=== PATIENT | female | born 2000 | race Hispanic/Latino ===

== ENCOUNTER 2018-06-21 00:43 | Emergency (ER) | payer BC, SELFPAY ==
[2018-06-21 01:48] LABS: Urine RBC <5 /HPF (NONE SEEN)
[2018-06-21 01:49] LABS: Urine Bacteria 20-50 /HPF (<20); Urine Culture Reflex Order REFLEXED; Urine Mucus HEAVY /HPF (NONE SEEN)
--- NOTE | 2018-06-21 03:50 | ER ---
Nurse's Notes [facility] Name: Klaudia Combs Age: 17 yrs Sex: Female : 2000 Arrival Date: 06/21/2018 Time: 00:46 Bed 19 Private MD: Diagnosis: urinary tract infection;Constipation, unspecified Presentation: 06/21 00:53 Presenting complaint: Patient states: Sudden onset of LLQ abdominal pain, tender on lp1 palpation; Denies any burning with urination, fever, N/V. Transition of care: patient was not received from another setting of care. Onset of symptoms was June 21, 2018 at 00:30. Risk Assessment: Do you want to hurt yourself or someone else? Patient reports no desire to harm self or others. Initial Sepsis Screen: Does the patient meet any 2 criteria? No. Patient's initial sepsis screen is negative. Does the patient have a suspected source of infection? No. Patient's initial sepsis screen is negative. Care prior to arrival: None. 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 - Social history:: Smoking status: Patient/guardian denies using tobacco. - Ebola Screening: : No symptoms or risks identified at this time. Screenin:57 Abuse screen: Denies threats or abuse. Denies injuries from another. Nutritional lp1 screening: No deficits noted. Tuberculosis screening: No symptoms or risk factors identified. Fall Risk None identified. Assessment: 00:56 General: Appears uncomfortable, Behavior is appropriate for age. Pain: Complains of lp1 pain in left lower quadrant and left inguinal area. Neuro: Level of Consciousness is awake, alert, obeys commands, Oriented to person, place, time, situation. Cardiovascular: Patient's skin is warm and dry. Respiratory: Respiratory effort is even, unlabored. GI: Abdomen is flat, Bowel sounds present X 4 quads. Abdomen is tender to palpation in left lower quadrant. : Denies burning with urination. EENT: No signs and/or symptoms were reported regarding the EENT system. Derm: Skin is pink, warm \T\ dry. Musculoskeletal: Circulation, motion, and sensation intact. 01:00 Reassessment: Patient appears in no apparent distress at this time. Patient and/or lp1 family updated on plan of care and expected duration. Pain level reassessed. Patient states pain to LLQ has subsided at this time; waiting for results. Vital Signs: 00:54 BP 120 / 82; Pulse 100; Resp 16; Temp 99.2(O); Pulse Ox 100% on R/A; Weight 54.43 kg; lp1 Height 5 ft. 3 in. (160.02 cm); Pain 7/10; 01:00 BP 121 / 78; Pulse 89; Resp 16; Pulse Ox 100% on R/A; lp1 03:30 BP 102 / 67; Pulse 79; Resp 16; Pulse Ox 100% on R/A; lp1 00:54 Body Mass Index 21.26 (54.43 kg, 160.02 cm) lp1 ED Course: 00:46 Patient arrived in ED. es 00:51 Price Sr MD is Attending Physician. tw4 00:53 Argelia Kwon, KENDRICK is Primary Nurse. lp1 00:54 Triage completed. lp1 00:55 Arm band placed on. lp1 00:58 Patient has correct armband on for positive identification. Placed in gown. Pulse ox lp1 on. NIBP on. 01:14 Abdomen 1 View (KUB) XRAY In Process Unspecified. EDMS 03:48 No provider procedures requiring assistance completed. Patient did not have IV access lp1 during this emergency room visit. Administered Medications: 03:47 Drug: Macrobid 100 mg Route: PO; lp1 03:56 Follow up: Response: No adverse reaction; Medication administered at discharge. lp1 03:47 Drug: Tylenol 1000 mg Route: PO; lp1 03:56 Follow up: Response: No adverse reaction; Medication administered at discharge. lp1 Outcome: 03:49 Discharge ordered by . tw4 03:56 Discharged to home ambulatory, with family. lp1 03:56 Condition: good 03:56 Discharge instructions given to patient, Instructed on discharge instructions, follow up and referral plans. medication usage, Demonstrated understanding of instructions, follow-up care, medications, Prescriptions given X 1. 03:57 Patient left the ED. lp1 Signatures: Dispatcher [employer] Duyen Victoria Laura, RN RN lp1 Price Sr MD MD tw4
--- NOTE | 2018-06-21 03:50 | EDPHYS ---
Physician Documentation [facility] Name: Klaudia Combs Age: 17 yrs Sex: Female : 2000 Arrival Date: 06/21/2018 Time: 00:46 Bed 19 Private MD: ED Physician Price Sr HPI: 06/21 06:01 This 17 yrs old Female presents to ER via Ambulatory with complaints of Flank tw4 Pain. 06:01 The patient presents with abdominal pain. Onset: The symptoms/episode began/occurred tw4 just prior to arrival, today. The symptoms do not radiate. Associated signs and symptoms: none. The symptoms are described as dull. Modifying factors: The symptoms are alleviated by nothing, the symptoms are aggravated by alcohol. The patient has not experienced similar symptoms in the past. 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 - Social history:: Smoking status: Patient/guardian denies using tobacco. - Ebola Screening: : No symptoms or risks identified at this time. ROS: 06:01 Constitutional: Negative for fever, chills, and weight loss, Eyes: Negative for injury, tw4 pain, redness, and discharge, Cardiovascular: Negative for chest pain, palpitations, and edema, Respiratory: Negative for shortness of breath, cough, wheezing, and pleuritic chest pain, Back: Negative for injury and pain. 06:01 Abdomen/GI: Positive for abdominal pain, Negative for nausea and vomiting, nausea, vomiting, and diarrhea, nausea, vomiting, diarrhea. Exam: 06:01 Constitutional: This is a well developed, well nourished patient who is awake, alert, tw4 and in no acute distress. Head/Face: Normocephalic, atraumatic. Chest/axilla: Normal chest wall appearance and motion. Nontender with no deformity. No lesions are appreciated. Cardiovascular: Regular rate and rhythm with a normal S1 and S2. No gallops, murmurs, or rubs. Normal PMI, no JVD. No pulse deficits. Respiratory: Lungs have equal breath sounds bilaterally, clear to auscultation and percussion. No rales, rhonchi or wheezes noted. No increased work of breathing, no retractions or nasal flaring. Back: No spinal tenderness. No costovertebral tenderness. Full range of motion. MS/ Extremity: Pulses equal, no cyanosis. Neurovascular intact. Full, normal range of motion. Neuro: Awake and alert, GCS 15, oriented to person, place, time, and situation. Cranial nerves II-XII grossly intact. Motor strength 5/5 in all extremities. Sensory grossly intact. Cerebellar exam normal. Normal gait. Vital Signs: 00:54 BP 120 / 82; Pulse 100; Resp 16; Temp 99.2(O); Pulse Ox 100% on R/A; Weight 54.43 kg; lp1 Height 5 ft. 3 in. (160.02 cm); Pain 7/10; 01:00 BP 121 / 78; Pulse 89; Resp 16; Pulse Ox 100% on R/A; lp1 03:30 BP 102 / 67; Pulse 79; Resp 16; Pulse Ox 100% on R/A; lp1 00:54 Body Mass Index 21.26 (54.43 kg, 160.02 cm) lp1 MDM: 00:51 Patient medically screened. tw4 06:01 Differential diagnosis: acute coronary syndrome, bowel obstruction. Data reviewed: tw4 vital signs, nurses notes. Test interpretation: by ED physician or midlevel provider: plain radiologic studies. Counseling: I had a detailed discussion with the patient and/or guardian regarding: lab results. Medication response: Response to treatment: the patient's symptoms have mildly improved after treatment, and as a result, I will discharge patient. 06/21 00:53 Order name: Urine Microscopic Only; Complete Time: 03:21 [facility] 06/21 01:18 Order name: Urine Dipstick--Ancillary (enter results) [facility] 06/21 00:53 Order name: Abdomen 1 View (KUB) XRAY [facility] 06/21 01:18 Order name: Urine --Ancillary (enter results) [facility] 06/21 01:50 Order name: Urine Culture [facility] 06/21 00:53 Order name: Urine Dipstick-Ancillary (obtain specimen); Complete Time: 01:17 [facility] 06/21 00:53 Order name: Urine Test (obtain specimen); Complete Time: 01:17 tw4 Administered Medications: 03:47 Drug: Macrobid 100 mg Route: PO; lp1 03:56 Follow up: Response: No adverse reaction; Medication administered at discharge. lp1 03:47 Drug: Tylenol 1000 mg Route: PO; lp1 03:56 Follow up: Response: No adverse reaction; Medication administered at discharge. lp1 Disposition: 06/21/18 03:49 Discharged to Home. Impression: urinary tract infection, Constipation, unspecified. - Condition is Stable. - Discharge Instructions: Urinary Tract Infection, Adult, Constipation, Adult, [id number]. - Prescriptions for Macrobid 100 mg Oral Capsule - take 1 capsule by ORAL route every 12 hours for 7 days; 14 capsule. - Medication Reconciliation Form, Thank You Letter, Antibiotic Education, Prescription Opioid Use form. - Follow up: Private Physician; When: Upon discharge from the Emergency Department; Reason: If symptoms return, Recheck today's complaints, Continuance of care. - Problem is new. - Symptoms have improved. Signatures: Dispatcher [employer] EDArgelia León RN RN lp1 Price Sr MD MD tw4 Corrections: (The following items were deleted from the chart) 03:57 03:49 06/21/2018 03:49 Discharged to Home. Impression: urinary tract infection; lp1 Constipation, unspecified. Condition is Stable. Discharge Instructions: Urinary Tract Infection, Adult, Constipation, Adult, [id number]. Prescriptions for Macrobid 100 mg Oral Capsule - take 1 capsule by ORAL route every 12 hours for 7 days; 14 capsule. and Forms are Medication Reconciliation Form, Thank You Letter, Antibiotic Education, Prescription Opioid Use. Follow up: Private Physician; When: Upon discharge from the Emergency Department; Reason: If symptoms return, Recheck today's complaints, Continuance of care. Problem is new. Symptoms have improved. tw4
[2018-06-21] MEDS ORDERED: ACETAMINOPHEN 500 MG TAB ONE (03:51)
[2018-06-21] MEDS ORDERED: NITROFURAN MACRO 100 MG CAP PO ONE (03:51)
[2018-06-21 03:53] LABS: Urine Blood TRACE (NEG); Urine Glucose NEGATIVE (NEG); Urine Protein NEGATIVE (NEG); Urine Specific Gravity >1.030 (1.005-1.030)
[2018-06-21 04:09] VITALS: TEMP 99.2; O2SAT 100
[2018-06-21 04:11] VITALS: BP 102/67
--- NOTE | 2018-06-21 11:37 | RAD REPORT ---
EXAM DESCRIPTION: RAD - Abdomen 1 View (KUB) - 06/21/2018 1:20 am CLINICAL HISTORY: ABD PAIN Pain COMPARISON: Abdomen Pelvis W Contrast dated 02/02/2016 FINDINGS: The bowel gas pattern is non-obstructive. No evidence of free air or pneumatosis. Linear o blong calcification projects over the central pelvis, of unclear etiology or significance. No significant bony findings. Moderate retained stool in the colon. IMPRESSION: Moderate fecal retention.
== END 2018-06-21 03:57 | disposition home or self-care (01) ==
LOC: ER 00:43
DX: N39.0 Urinary tract infection, site not specified (principal); K59.00 Constipation, unspecified
CPT/HCPCS: 74018; 81003; 81015; 81025; 87086; 87088; 99284

== ENCOUNTER 2019-01-13 16:17 | Emergency (ER) | payer OTHER, SELFPAY ==
[2019-01-13 17:13] LABS: Absolute Lymphocytes (CBC) 1.5 K/uL (0.7-4.9); Basophils % 0.3 % (0-1.3); Hematocrit 31.7 % (36.0-45.0); Lymphocytes % 20.7 % (15.3-44.8); MPV 9.4 fL (7.6-11.3); RBC Red Blood Cell Count 3.83 M/uL (3.86-4.86)
[2019-01-13 17:24] LABS: BUN Blood Urea Nitrogen 6 mg/dL (7-18); Bicarbonate 25 mmol/L (21-32); Glucose Level 103 mg/dL (74-106); Potassium 3.2 mmol/L (3.5-5.1); Sodium Level 141 mmol/L (136-145)
--- NOTE | 2019-01-13 17:57 | RAD REPORT ---
EXAM DESCRIPTION: US - Transvaginal Study Probe - 01/13/2019 5:49 pm CLINICAL HISTORY: lower abd pain, 1 week s/p elective Pelvic pain. COMPARISON: No comparisons FINDINGS: The uterus is normal in size, shape and echotexture. The endometrial stripe measures 16 mm and is heterogenous in appearance. The right ovary is normal in size and demonstrates normal blood flow. The left ovary was obscured by bowel gas. No significant pelvic ascites. IMPRESSION: Dilatation of the endometrial stripe is seen with heterogenous nonvascular material prob ably related blood product.
--- NOTE | 2019-01-13 18:17 | RAD REPORT ---
EXAM DESCRIPTION: CTAbdomen Pelvis W Contrast - 01/13/2019 6:07 pm CLINICAL HISTORY: Abdominal pain. ABD PAIN COMPARISON: Abdomen Pelvis W Contrast dated 02/02/2016 TECHNIQUE: Biphasic CT imaging of the abdomen and pelvis was performed with 100 ml non-ionic IV cont rast. All CT scans are performed using dose optimization technique as appropriate and may include automated exposure control or mA/KV adjustment according to patient size. FINDINGS: The lung bases are clear. The liver, spleen, pancreas, adrenal glands and kidneys are within normal limits. No bowel obstruction, free air, free fluid or abscess. There is quite a large amount of stool in the colon. The appendix is normal. No evidence of significant lymphadenopathy. No suspicious bony findings. Fluid is present in the endometrial canal is well as a small amount in t he pelvis. IMPRESSION: Prominent fecal retention in the colon.
--- NOTE | 2019-01-13 18:25 | EDPHYS ---
Physician Documentation [facility] Name: Klaudia Combs Age: 18 yrs Sex: Female : 2000 Arrival Date: 01/13/2019 Time: 16:23 Bed 17 Private MD: ED Physician Kevin Jackson HPI: 01/13 17:45 This 18 yrs old Female presents to ER via Ambulatory with complaints of kb Abdominal Pain, Back Pain. 17:45 The patient presents with abdominal pain in the lower abdomen. Onset: The kb symptoms/episode began/occurred yesterday. The symptoms radiate to back. Associated signs and symptoms: none. The symptoms are described as constant. Modifying factors: The symptoms are alleviated by nothing, the symptoms are aggravated by pressure. Severity of pain: At its worst the pain was moderate in the emergency department the pain is unchanged. The patient has not experienced similar symptoms in the past. The patient has been recently seen by a physician:. Pt reports she had an elective surgical a week ago. States they told her that she would have pain and cramping, but it all got worse yesterday/. [employer]: 16:52 2, Full Term 1, 1, Living 1 sv Historical: - Allergies: 16:27 No Known Allergies; sv - PSHx: 16:27 ; sv - Immunization history:: Adult Immunizations up to date. - Social history:: Smoking status: Patient/guardian denies using tobacco. - Ebola Screening: : No symptoms or risks identified at this time. ROS: 17:45 Constitutional: Negative for fever, chills, and weight loss, Neck: Negative for injury, kb pain, and swelling, Cardiovascular: Negative for chest pain, palpitations, and edema, Respiratory: Negative for shortness of breath, cough, wheezing, and pleuritic chest pain, Back: Negative for injury and pain, : Negative for injury, bleeding, discharge, and swelling, MS/Extremity: Negative for injury and deformity, Skin: Negative for injury, rash, and discoloration, Neuro: Negative for headache, weakness, numbness, tingling, and seizure. 17:45 Abdomen/GI: Positive for abdominal pain. Exam: 17:45 Constitutional: This is a well developed, well nourished patient who is awake, alert, kb and in no acute distress. Head/Face: Normocephalic, atraumatic. Chest/axilla: Normal chest wall appearance and motion. Nontender with no deformity. No lesions are appreciated. Cardiovascular: Regular rate and rhythm with a normal S1 and S2. No gallops, murmurs, or rubs. Normal PMI, no JVD. No pulse deficits. Respiratory: Lungs have equal breath sounds bilaterally, clear to auscultation and percussion. No rales, rhonchi or wheezes noted. No increased work of breathing, no retractions or nasal flaring. Back: No spinal tenderness. No costovertebral tenderness. Full range of motion. Skin: Warm, dry with normal turgor. Normal color with no rashes, no lesions, and no evidence of cellulitis. MS/ Extremity: Pulses equal, no cyanosis. Neurovascular intact. Full, normal range of motion. Neuro: Awake and alert, GCS 15, oriented to person, place, time, and situation. Cranial nerves II-XII grossly intact. Motor strength 5/5 in all extremities. Sensory grossly intact. Cerebellar exam normal. Normal gait. 17:45 Abdomen/GI: Inspection: abdomen appears normal, Bowel sounds: normal, Palpation: moderate abdominal tenderness, in the right lower quadrant and left lower quadrant. Vital Signs: 16:26 BP 116 / 67; Pulse 101; Resp 16; Temp 97.8; Pulse Ox 100% on R/A; Weight 52.16 kg; hb Height 5 ft. 2 in. (157.48 cm); Pain 7/10; 17:15 BP 101 / 54; Pulse 91; Resp 16; Pulse Ox 96% ; sv 17:58 BP 103 / 62; Pulse 103; Resp 16; Temp 99.8(O); Pulse Ox 96% on R/A; mh5 18:38 BP 102 / 63; Pulse 100; Resp 16; Pulse Ox 99% ; sv 16:26 Body Mass Index 21.03 (52.16 kg, 157.48 cm) hb MDM: 16:33 Patient medically screened. kb 17:45 Data reviewed: vital signs, nurses notes. Data interpreted: Pulse oximetry: on room air kb is 96 %. Interpretation: normal. 17:54 ED course: UPT +, but pt is one week s/p surgical . US showed nothing in the kb uterus, no other abnormalities. Will CT . 18:23 Counseling: I had a detailed discussion with the patient and/or guardian regarding: the kb historical points, exam findings, and any diagnostic results supporting the discharge/admit diagnosis, lab results, radiology results, the need for outpatient follow up, a family practitioner, to return to the emergency department if symptoms worsen or persist or if there are any questions or concerns that arise at home. 01/13 16:41 Order name: CBC with Diff; Complete Time: 17:30 kb 01/13 16:41 Order name: Basic Metabolic Panel; Complete Time: 17:30 kb 01/13 16:41 Order name: Urine Dipstick--Ancillary (enter results) 01/13 16:41 Order name: Urine --Ancillary (enter results) 01/13 17:04 Order name: US Transvaginal Study (Probe); Complete Time: 18:01 kb 01/13 17:54 Order name: CT Abd/Pelvis - IV Contrast Only; Complete Time: 18:21 kb 01/13 16:30 Order name: Urine Dipstick-Ancillary (obtain specimen); Complete Time: 16:35 kb 01/13 16:41 Order name: IV Start; Complete Time: 16:51 kb Administered Medications: 18:37 Drug: Potassium Chloride 40 mEq Route: PO; sv 18:37 Follow up: Response: Medication administered at discharge. sv 18:37 Drug: Magnesium Citrate Liquid 300 ml Route: PO; sv 18:37 Follow up: Response: Medication administered at discharge. Disposition: 18:42 Co-signature as Attending Physician, Kevin Jackson MD. rn Disposition: 01/13/19 18:24 Discharged to Home. Impression: Constipation, unspecified. - Condition is Stable. - Discharge Instructions: Constipation, Adult, [id number]. - Medication Reconciliation Form, Thank You Letter, Antibiotic Education, Prescription Opioid Use, Work release form form. - Follow up: Private Physician; When: 2 - 3 days; Reason: Recheck today's complaints, Continuance of care, Re-evaluation by your physician. Follow up: Emergency Department; When: As needed; Reason: Worsening of condition. Signatures: Dis[facility] Deepika Muniz FNP-C FNP-Ckb Verde, Stephanie, RN RN Kevin Jain MD MD awake overnight monitor: (The following items were deleted from the chart) 18:38 18:24 01/13/2019 18:24 Discharged to Home. Impression: Constipation, unspecified. sv Condition is Stable. Forms are Medication Reconciliation Form, Thank You Letter, Antibiotic Education, Prescription Opioid Use. Follow up: Private Physician; When: 2 - 3 days; Reason: Recheck today's complaints, Continuance of care, Re-evaluation by your physician. Follow up: Emergency Department; When: As needed; Reason: Worsening of condition. kb
--- NOTE | 2019-01-13 18:25 | ER ---
Nurse's Notes [facility] Name: Klaudia Combs Age: 18 yrs Sex: Female : 2000 Arrival Date: 01/13/2019 Time: 16:23 Bed 17 Private MD: Diagnosis: Constipation, unspecified Presentation: 01/13 16:26 Presenting complaint: lower abdominal and lower back pain since last night. Pt is 1 hb week s/p D\T\C. 16:26 Onset of symptoms was January 12, 2019. hb 16:26 Acuity: RONDA 3 hb 16:27 Transition of care: patient was not received from another setting of care. Risk sv Assessment: Do you want to hurt yourself or someone else? Patient reports no desire to harm self or others. Initial Sepsis Screen: Does the patient meet any 2 criteria? No. Patient's initial sepsis screen is negative. Does the patient have a suspected source of infection? No. Patient's initial sepsis screen is negative. Care prior to arrival: None. 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 - Social history:: Smoking status: Patient/guardian denies using tobacco. - Ebola Screening: : No symptoms or risks identified at this time. Screenin:26 Abuse screen: Denies threats or abuse. Denies injuries from another. Nutritional sv screening: No deficits noted. Tuberculosis screening: No symptoms or risk factors identified. Fall Risk None identified. Assessment: 16:40 General: Appears in no apparent distress. uncomfortable, slender, well developed, sv Behavior is calm, cooperative, appropriate for age. General: Reports she was about 17 weeks at the time. Denies fever, chills. Pain: Complains of pain in low back area and suprapubic area Pain currently is 7 out of 10 on a pain scale. Neuro: Level of Consciousness is awake, alert, obeys commands, Oriented to person, place, time, situation, Moves all extremities. Full function Gait is steady. Respiratory: Airway is patent Respiratory effort is even, unlabored, Respiratory pattern is regular, symmetrical. GI: Abdomen is flat, Abd is soft X 4 quads Reports lower abdominal pain, cramping. Derm: Skin is intact, Skin is pale. 17:55 Reassessment: Patient appears in no apparent distress at this time. No changes from sv previously documented assessment. Patient and/or family updated on plan of care and expected duration. Pain level reassessed. Patient is alert, oriented x 3, equal unlabored respirations, skin warm/dry/pink. 18:11 Reassessment: Patient appears in no apparent distress at this time. No changes from sv previously documented assessment. Patient and/or family updated on plan of care and expected duration. Pain level reassessed. Patient is alert, oriented x 3, equal unlabored respirations, skin warm/dry/pink. 18:38 Reassessment: Patient appears in no apparent distress at this time. No changes from sv previously documented assessment. Patient and/or family updated on plan of care and expected duration. Pain level reassessed. Patient is alert, oriented x 3, equal unlabored respirations, skin warm/dry/pink. Vital Signs: 16:26 BP 116 / 67; Pulse 101; Resp 16; Temp 97.8; Pulse Ox 100% on R/A; Weight 52.16 kg; hb Height 5 ft. 2 in. (157.48 cm); Pain 7/10; 17:15 BP 101 / 54; Pulse 91; Resp 16; Pulse Ox 96% ; sv 17:58 BP 103 / 62; Pulse 103; Resp 16; Temp 99.8(O); Pulse Ox 96% on R/A; mh5 18:38 BP 102 / 63; Pulse 100; Resp 16; Pulse Ox 99% ; sv 16:26 Body Mass Index 21.03 (52.16 kg, 157.48 cm) ED Course: 16:23 Patient arrived in ED. mr 16:23 [facility] Ballard [facility]C [facility] kb 16:23 Kevin Jackson MD is Attending Physician. kb 16:26 Karis Rodriguez, KENDRICK is Primary Nurse. sv 16:26 Arm band placed on Patient placed in an exam room, on a stretcher. sv 16:26 Patient has correct armband on for positive identification. Bed in low position. Call sv light in reach. Door closed. Head of bed elevated. 16:30 Triage completed. hb 16:45 Inserted saline lock: 20 gauge in right antecubital area, using aseptic technique. sv Blood collected. Flushed right antecubital with 2 ml normal saline. 17:23 Patient taken to ultrasound. via wheelchair. lc3 17:49 US Transvaginal Study (Probe) In Process Unspecified. EDMS 17:56 Ultrasound completed. Patient tolerated well. Patient moved back from ultrasound. lc3 18:[address] via wheelchair. sv 18:08 CT Abd/Pelvis - IV Contrast Only In Process Unspecified. EDMS 18:11 Awaiting radiology results. Patient moved back from CT. sv 18:38 No provider procedures requiring assistance completed. IV discontinued, intact, sv bleeding controlled, No redness/swelling at site. Pressure dressing applied. Administered Medications: 18:37 Drug: Potassium Chloride 40 mEq Route: PO; sv 18:37 Follow up: Response: Medication administered at discharge. sv 18:37 Drug: Magnesium Citrate Liquid 300 ml Route: PO; sv 18:37 Follow up: Response: Medication administered at discharge. sv Outcome: 18:24 Discharge ordered by . kb 18:38 Patient left the ED. sv 18:38 Discharged to home ambulatory. sv 18:38 Condition: stable 18:38 Discharge instructions given to patient, Instructed on discharge instructions, follow up and referral plans. Demonstrated understanding of instructions, follow-up care. Signatures: Dispatcher [employer] EDMS Deepika Ballard, CAVING GUIDE-C CAVING GUIDE-CkKaris Chavez RN RN sv Rivera, Mary mr DoConsuelo lc3 Natalia Manley RN RN Unique Vasquez [facility] Corrections: (The following items were deleted from the chart) 17:56 17:22 Radiology exam delayed due to test not completed at this time. lc3 lc3 19:17 18:38 Discharge instructions given to patient, Instructed on discharge instructions, sv follow up and referral plans. medication usage, Demonstrated understanding of instructions, follow-up care, medications, sv
[2019-01-13] MEDS ORDERED: MAGNESIUM CITRATE 300 ML BOT ONE (18:27)
[2019-01-13] MEDS ORDERED: POTASSIUM CL SA 10 MEQ TAB PO ONE (18:27)
[2019-01-13 18:49] LABS: Urine Blood 3+ (NEG); Urine Glucose NEGATIVE (NEG); Urine Protein NEGATIVE (NEG); Urine Specific Gravity 1.015 (1.005-1.030)
[2019-01-13 19:05] VITALS: TEMP 99.8
[2019-01-13 19:07] VITALS: BP 102/63; O2SAT 99
== END 2019-01-13 18:38 | disposition home or self-care (01) ==
LOC: ER 16:17
DX: K59.00 Constipation, unspecified (principal); Z98.890 Other specified postprocedural states
CPT/HCPCS: 85025; 80048; 36415; 81025; 81003; 74177; 76830; Q9967; 99284

== ENCOUNTER 2019-06-24 02:40 | Emergency (ER) | payer SELFPAY ==
[2019-06-24] MEDS ORDERED: NA CHLORIDE 0.9% 1,000 ML ONE (03:25)
[2019-06-24] MEDS ORDERED: FAMOTIDINE 20 MG/2 ML VIAL IV ONE (03:26)
[2019-06-24] MEDS ORDERED: ONDANSETRON 4 MG (ODT) TAB ONE (03:28)
[2019-06-24 03:30] LABS: Absolute Lymphocytes (CBC) 1.7 K/uL (0.7-4.9); Basophils % 0.3 % (0-1.3); Hematocrit 32.9 % (36.0-45.0); Lymphocytes % 12.6 % (15.3-44.8); MPV 9.4 fL (7.6-11.3); RBC Red Blood Cell Count 4.52 M/uL (3.86-4.86)
[2019-06-24 03:49] LABS: ALT/SGPT 15 U/L (12-78); AST/SGOT 10 U/L (15-37); Albumin 4.2 g/dL (3.4-5.0); Alkaline Phosphatase 86 U/L (45-117); BUN Blood Urea Nitrogen 14 mg/dL (7-18); Bicarbonate 26 mmol/L (21-32); Bilirubin Direct < 0.1 mg/dL (0-0.2); Bilirubin Total 0.3 mg/dL (0.2-1.0); Glucose Level 105 mg/dL (74-106); Lipase 78 U/L (73-393); Potassium 3.3 mmol/L (3.5-5.1); Protein, Total 8.5 g/dL (6.4-8.2); Sodium Level 138 mmol/L (136-145)
[2019-06-24 05:02] LABS: Urine Blood NEGATIVE (NEG); Urine Glucose NEGATIVE (NEG); Urine Protein NEGATIVE (NEG); Urine Specific Gravity 1.025 (1.005-1.030)
--- NOTE | 2019-06-24 06:10 | ER ---
Nurse's Notes [facility] Name: Klaudia Combs Age: 18 yrs Sex: Female : 2000 Arrival Date: 06/24/2019 Time: 02:43 Bed 13 Private MD: Diagnosis: Vomiting;Abdominal tenderness;Elevated white blood cell count;Anemia, unspecified;Constipation;Other ovarian cysts Presentation: 06/23 03:00 Chief complaint: Patient states: upper abd pain and N/V x 1 hr. Coronavirus screen: The aa1 patient has NOT traveled to a country currently being monitored by the [facility] within the last 14 days. Proceed with normal triage procedures. Ebola Screen: No symptoms or risks identified at this time. Initial Sepsis Screen: Does the patient meet any 2 criteria? HR > 90 bpm. Does the patient have a suspected source of infection? Yes:. Risk Assessment: Do you want to hurt yourself or someone else? Patient reports no desire to harm self or others. 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 - Social history:: Smoking status: Patient denies any tobacco usage or history of. - Family history:: not pertinent. Screenin:00 Abuse screen: Denies threats or abuse. Denies injuries from another. Nutritional aa1 screening: No deficits noted. Tuberculosis screening: No symptoms or risk factors identified. Fall Risk None identified. Assessment: 03:00 General: Appears in no apparent distress. comfortable, Behavior is calm, cooperative, aa1 appropriate for age. Pain: Complains of pain in left upper quadrant and right upper quadrant and epigastric area Quality of pain is described as squeezing, Pain began 1 hour ago. Neuro: Level of Consciousness is awake, alert, obeys commands, Oriented to person, place, time, situation, Moves all extremities. Full function Gait is steady. Respiratory: Airway is patent Respiratory effort is even, unlabored, Respiratory pattern is regular, symmetrical. GI: Abdomen is non-distended, Bowel sounds present X 4 quads. Abd is soft X 4 quads Reports upper abdominal pain, nausea, vomiting. : No signs and/or symptoms were reported regarding the genitourinary system. EENT: No signs and/or symptoms were reported regarding the EENT system. Derm: Skin is intact, is healthy with good turgor, Skin is pink, warm \T\ dry. Musculoskeletal: Circulation, motion, and sensation intact. Capillary refill < 3 seconds. 04:00 Reassessment: Patient appears in no apparent distress at this time. Patient and/or aa1 family updated on plan of care and expected duration. Pain level reassessed. Patient is alert, oriented x 3, equal unlabored respirations, skin warm/dry/pink. Awaiting CT scan. 05:15 Reassessment: Patient appears in no apparent distress at this time. Patient and/or aa1 family updated on plan of care and expected duration. Pain level reassessed. Patient is alert, oriented x 3, equal unlabored respirations, skin warm/dry/pink. Awaiting CT results. 06:15 Reassessment: Patient appears in no apparent distress at this time. Patient and/or aa1 family updated on plan of care and expected duration. Pain level reassessed. Patient is alert, oriented x 3, equal unlabored respirations, skin warm/dry/pink. Pt given PO challenge; will d/c if tolerates. 06:43 Reassessment: Patient appears in no apparent distress at this time. Patient is alert, aa1 oriented x 3, equal unlabored respirations, skin warm/dry/pink. Discussed d/c \T\ f/u instructions with pt; denies questions or concerns at this time Patient denies pain at this time. Patient states feeling better. Vital Signs: 03:00 BP 113 / 76; Pulse 111; Resp 16; Temp 98.6; Pulse Ox 100% on R/A; Weight 49.9 kg; aa1 Height 5 ft. 2 in. (157.48 cm); Pain 5/10; 04:02 BP 110 / 70; Pulse 107; Resp 16; Pulse Ox 97% on R/A; aa1 05:15 BP 116 / 74; Pulse 101; Resp 16; Temp 98.4; Pulse Ox 100% on R/A; aa1 03:00 Body Mass Index 20.12 (49.90 kg, 157.48 cm) aa1 ED Course: 02:43 Patient arrived in ED. jg7 02:54 Florentin Gtz MD is Attending Physician. [facility] 03:00 Patient placed in an exam room, on a stretcher. aa1 03:00 Patient has correct armband on for positive identification. Bed in low position. Call aa1 light in reach. Pulse ox on. NIBP on. 03:15 Initial lab(s) drawn, by ED staff, sent to lab. Inserted saline lock: 22 gauge in right aa1 antecubital area, using aseptic technique. Blood collected. 03:19 Latonya Hollis RN is Primary Nurse. aa1 03:39 Triage completed. aa1 06:08 Adria Owen MD is Referral Physician. [facility] 06:15 CT Abd/Pelvis - IV Contrast Only In Process Unspecified. EDMS 06:44 No provider procedures requiring assistance completed. IV discontinued, intact, aa1 bleeding controlled, No redness/swelling at site. Pressure dressing applied. Administered Medications: 03:25 Drug: NS 0.9% 1000 ml Route: IV; Rate: 1 bolus; Site: right antecubital; aa1 03:25 Drug: Pepcid 20 mg Route: IVP; Site: right antecubital; aa1 03:25 Drug: Zofran (Ondansetron) 4 mg Route: PO; aa1 04:25 Follow up: Response: No adverse reaction; Nausea is decreased aa1 03:33 CANCELLED (Other Intervention Used): Zofran (Ondansetron) 4 mg IVP once; over 2 minutes aa1 Outcome: 06:09 Discharge ordered by . [facility] 06:44 Discharged to home ambulatory, with significant other. aa1 06:44 Condition: good 06:44 Discharge instructions given to patient, significant other, Instructed on discharge instructions, follow up and referral plans. no driving heavy equipment, Demonstrated understanding of instructions, follow-up care, medications, Prescriptions given X 2. 06:50 Patient left the ED. aa1 Signatures: Dispatcher [employer] EDMS Latonya Hollis RN RN aa1 Florentin Gtz MD MD cha Gutierrez, Jessica jg7
--- NOTE | 2019-06-24 06:10 | EDPHYS ---
Physician Documentation [facility] Name: Klaudia Combs Age: 18 yrs Sex: Female : 2000 Arrival Date: 06/24/2019 Time: 02:43 Bed 13 Private MD: ED Physician Florentin Gtz HPI: 06/23 03:02 This 18 yrs old Female presents to ER via Unassigned with complaints of canelo Nausea/Vomiting. 03:02 The patient presents to the emergency department with nausea, vomiting, described as canelo bilious, undigested food. Onset: The symptoms/episode began/occurred just prior to arrival. Possible causes: unknown. The symptoms are aggravated by nothing. The symptoms are alleviated by remaining still. Associated signs and symptoms: Pertinent positives: abdominal pain, nausea, vomiting. Severity of symptoms: At their worst the symptoms were mild in the emergency department the symptoms are unchanged. The patient has not experienced similar symptoms in the past. 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 - Social history:: Smoking status: Patient denies any tobacco usage or history of. - Family history:: not pertinent. ROS: 03:02 Constitutional: Negative for fever, chills, and weight loss, Eyes: Negative for injury, canelo pain, redness, and discharge, ENT: Negative for injury, pain, and discharge, Neck: Negative for injury, pain, and swelling, Cardiovascular: Negative for chest pain, palpitations, and edema, Respiratory: Negative for shortness of breath, cough, wheezing, and pleuritic chest pain, Back: Negative for injury and pain, : Negative for injury, bleeding, discharge, and swelling, MS/Extremity: Negative for injury and deformity, Skin: Negative for injury, rash, and discoloration, Neuro: Negative for headache, weakness, numbness, tingling, and seizure, Psych: Negative for depression, anxiety, suicide ideation, homicidal ideation, and hallucinations, Allergy/Immunology: Negative for hives, rash, and allergies, Endocrine: Negative for neck swelling, polydipsia, polyuria, polyphagia, and marked weight changes, Hematologic/Lymphatic: Negative for swollen nodes, abnormal bleeding, and unusual bruising. 03:02 Abdomen/GI: Positive for abdominal pain, nausea and vomiting, of the epigastric area, right upper quadrant and left upper quadrant. Exam: 03:02 Constitutional: This is a well developed, well nourished patient who is awake, alert, canelo and in no acute distress. Head/Face: Normocephalic, atraumatic. Eyes: Pupils equal round and reactive to light, extra-ocular motions intact. Lids and lashes normal. Conjunctiva and sclera are non-icteric and not injected. Cornea within normal limits. Periorbital areas with no swelling, redness, or edema. ENT: Nares patent. No nasal discharge, no septal abnormalities noted. Tympanic membranes are normal and external auditory canals are clear. Oropharynx with no redness, swelling, or masses, exudates, or evidence of obstruction, uvula midline. Mucous membranes moist. Neck: Trachea midline, no thyromegaly or masses palpated, and no cervical lymphadenopathy. Supple, full range of motion without nuchal rigidity, or vertebral point tenderness. No Meningismus. Chest/axilla: Normal chest wall appearance and motion. Nontender with no deformity. No lesions are appreciated. Cardiovascular: Regular rate and rhythm with a normal S1 and S2. No gallops, murmurs, or rubs. Normal PMI, no JVD. No pulse deficits. Respiratory: Lungs have equal breath sounds bilaterally, clear to auscultation and percussion. No rales, rhonchi or wheezes noted. No increased work of breathing, no retractions or nasal flaring. Back: No spinal tenderness. No costovertebral tenderness. Full range of motion. Female : Normal external genitalia. Skin: Warm, dry with normal turgor. Normal color with no rashes, no lesions, and no evidence of cellulitis. MS/ Extremity: Pulses equal, no cyanosis. Neurovascular intact. Full, normal range of motion. Neuro: Awake and alert, GCS 15, oriented to person, place, time, and situation. Cranial nerves II-XII grossly intact. Motor strength 5/5 in all extremities. Sensory grossly intact. Cerebellar exam normal. Normal gait. Psych: Awake, alert, with orientation to person, place and time. Behavior, mood, and affect are within normal limits. 03:02 Abdomen/GI: Inspection: abdomen appears normal, Bowel sounds: normal, in the epigastric area, right upper quadrant and left upper quadrant. Vital Signs: 03:00 BP 113 / 76; Pulse 111; Resp 16; Temp 98.6; Pulse Ox 100% on R/A; Weight 49.9 kg; aa1 Height 5 ft. 2 in. (157.48 cm); Pain 5/10; 04:02 BP 110 / 70; Pulse 107; Resp 16; Pulse Ox 97% on R/A; aa1 05:15 BP 116 / 74; Pulse 101; Resp 16; Temp 98.4; Pulse Ox 100% on R/A; aa1 03:00 Body Mass Index 20.12 (49.90 kg, 157.48 cm) [facility] MDM: 02:54 Patient medically screened. [facility] 03:05 Data reviewed: vital signs, nurses notes, lab test result(s). [facility] 06/23 03:02 Order name: Basic Metabolic Panel [facility] 06/23 03:02 Order name: CBC with Diff [facility] 06/23 03:02 Order name: Creatinine for Radiology [facility] 06/23 03:02 Order name: Hepatic Function [facility] 06/23 03:02 Order name: Lipase [facility] 06/23 03:12 Order name: Urine --Ancillary (enter results) [facility] 06/23 03:12 Order name: Urine Dipstick--Ancillary (enter results) [facility] 06/23 03:33 Order name: CBC with Automated Diff; Complete Time: 03:43 [facility] 06/23 03:47 Order name: Creatinine (Radiology Only); Complete Time: 04:14 [facility] 06/23 03:49 Order name: Basic Metabolic Panel; Complete Time: 04:14 [facility] 06/23 03:49 Order name: Liver (Hepatic) Function; Complete Time: 04:14 [facility] 06/23 03:49 Order name: Lipase; Complete Time: 04:14 [facility] 06/23 05:02 Order name: Urine --Ancillary [facility] 06/23 05:02 Order name: Urine Dipstick-Ancillary [facility] 06/23 03:02 Order name: IV Saline Lock; Complete Time: 03:37 [facility] 06/23 03:02 Order name: Labs collected and sent; Complete Time: 03:37 [facility] 06/23 03:02 Order name: Urine Dipstick-Ancillary (obtain specimen); Complete Time: 03:10 [facility] 06/23 03:02 Order name: Urine Test (obtain specimen); Complete Time: 03:10 [facility] 06/23 03:44 Order name: CT Abd/Pelvis - IV Contrast Only [facility] 06/23 06:08 Order name: PO challenge: JUICE; Complete Time: 06:15 [facility] Administered Medications: 03:25 Drug: NS 0.9% 1000 ml Route: IV; Rate: 1 bolus; Site: right antecubital; aa1 03:25 Drug: Pepcid 20 mg Route: IVP; Site: right antecubital; aa1 03:25 Drug: Zofran (Ondansetron) 4 mg Route: PO; aa1 04:25 Follow up: Response: No adverse reaction; Nausea is decreased [facility] 03:33 CANCELLED (Other Intervention Used): Zofran (Ondansetron) 4 mg IVP once; over 2 minutes aa1 Disposition: 06/24/19 06:09 Discharged to Home. Impression: Vomiting, Abdominal tenderness, Elevated white blood cell count, Anemia, unspecified, Constipation, Other ovarian cysts. - Condition is Stable. - Discharge Instructions: Abdominal Pain, Adult, Constipation, Adult, Nausea and Vomiting, Adult, Ovarian Cyst, Nausea and Vomiting, Adult, [id number], Abdominal Pain, Adult, [id number], Ovarian Cyst, [id number]. - Prescriptions for Pepcid 20 mg Oral Tablet - take 1 tablet by ORAL route every 12 hours for 10 days; 20 tablet. Zofran 4 mg Oral Tablet - take 1 tablet by ORAL route every 12 hours As needed; 20 tablet. - Medication Reconciliation Form, Thank You Letter, Antibiotic Education, Prescription Opioid Use form. - Follow up: Private Physician; When: 2 - 3 days; Reason: Recheck today's complaints, Continuance of care, Re-evaluation by your physician. Follow up: Adria Owen; When: 2 - 3 days; Reason: Recheck today's complaints, Continuance of care, Re-evaluation by your physician. - Problem is new. - Symptoms have improved. Signatures: Dispatcher [employer] Latonya Zendejas RN RN aa1 Florentin Gtz MD MD cha Corrections: (The following items were deleted from the chart) 03:33 03:02 Zofran (Ondansetron) 4 mg IVP once; over 2 minutes ordered. canelo aa1 03:33 03:24 Zofran (Ondansetron) 4 mg IVP once; over 2 minutes ordered. aa1 aa1 06:50 06:09 06/24/2019 06:09 Discharged to Home. Impression: Vomiting; Abdominal tenderness; aa1 Elevated white blood cell count; Anemia, unspecified; Constipation; Other ovarian cysts. Condition is Stable. Discharge Instructions: Abdominal Pain, Adult, Nausea and Vomiting, Adult, Nausea and Vomiting, Adult, [id number], Abdominal Pain, Adult, [id number]. Prescriptions for Pepcid 20 mg Oral Tablet - take 1 tablet by ORAL route every 12 hours for 10 days; 20 tablet, Zofran 4 mg Oral Tablet - take 1 tablet by ORAL route every 12 hours As needed; 20 tablet. and Forms are Medication Reconciliation Form, Thank You Letter, Antibiotic Education, Prescription Opioid Use. Follow up: Private Physician; When: 2 - 3 days; Reason: Recheck today's complaints, Continuance of care, Re-evaluation by your physician. Follow up: Adria Owen; When: 2 - 3 days; Reason: Recheck today's complaints, Continuance of care, Re-evaluation by your physician. Problem is new. Symptoms have improved. canelo
[2019-06-24 07:07] VITALS: BP 116/74; TEMP 98.4; O2SAT 100
--- NOTE | 2019-06-24 11:03 | RAD REPORT ---
EXAM DESCRIPTION: CT - Abdomen Pelvis W Contrast - 06/24/2019 6:32 am CLINICAL HISTORY: The patient is 18 years old and is Female; ABD PAIN TECHNIQUE: Axial computed tomography images of the abdomen and pelvis with intravenous contrast. S agittal and coronal reformatted images were created and reviewed. This CT exam was performed using one or more of the following dose reduction techniques: automated exposure control, adjustment of t he mA and/or kV according to patient size, and/or use of iterative reconstruction technique. COMPARISON: CT of the abdomen and pelvis January 13, 2019. FINDINGS: LUNG BASES: Unremarkable. No mass. No consolidation. ABDOMEN: LIVER: Unremarkable. No mass. GALLBLADDER AND BILE DUCTS: No calcified stones. No ductal dilation. PANCREAS: No ductal dilation. No mass. SPLEEN: Unremarkable. ADRENALS: Unremarkable. No mass. KIDNEYS AND URETERS: Unremarkable. The kidneys enhance symmetrically. No obstructing renal or ur eteral calculus is seen. No hydronephrosis or hydroureter. No perinephric fluid or stranding. STOMACH AND BOWEL: The stomach is distended with food contents. The small bowel is normal in emma iber. A moderate amount of stool is present throughout colon. There is no mucosal thickening or evide nce of bowel obstruction. PELVIS: APPENDIX: The appendix is normal in caliber without surrounding inflammation. BLADDER: Unremarkable. No mass. REPRODUCTIVE: A 2.6 cm right ovarian cyst is present. A smaller 1.6 cm right ovarian cyst is als o present. The uterus is unremarkable. Calcification within the left hemipelvis is present, similar t o prior exam. ABDOMEN and PELVIS: INTRAPERITONEAL SPACE: Trace free fluid is present within the pelvis which is likely physiologic . No free air. BONES/JOINTS: No acute fracture. SOFT TISSUES: The soft tissues are normal. VASCULATURE: Unremarkable. No abdominal aortic aneurysm. LYMPH NODES: Unremarkable. No enlarged lymph nodes. IMPRESSION: 1. Moderate stool burden without obstruction. Normal appendix. 2. Right ovarian cysts. No follow-up imaging is recommended. Electronically signed by: Deepa Borja MD 06/24/2019 5:47 AM CDT Due to temporary technical issues with the PACS/Fluency reporting system, reports are being signed by the in house radiologist as a courtesy to ensure prompt reporting. The interpreting radiologist is f ully responsible for the content of the report.
== END 2019-06-24 06:50 | disposition home or self-care (01) ==
LOC: ER 02:40
DX: D72.829 Elevated white blood cell count, unspecified (principal); R11.10 Vomiting, unspecified; D64.9 Anemia, unspecified; K59.00 Constipation, unspecified; N83.299 Other ovarian cyst, unspecified side
CPT/HCPCS: 36415; 74177; 80048; 80076; 81003; 81025; 83690; 85025; 96374; 99284; J7030; Q9967

== ENCOUNTER 2022-09-25 03:02 | Emergency (ER) | payer OTHER ==
--- OUTSIDE RECORDS SUMMARY | 2022-09-25 03:35 | XMS REPORT | Continuity of Care Document ---
:2000 Author Organization [facility] t Address [address] [place] [address] [place] [id number] Care Team Providers Name Role Phone GABRIELLA CARO Primary Care Physician Unavailable GABRIELLA CARO Attending Clinician Unavailable KATELYNN ROGER Attending Clinician Unavailable KATELYNN ROGER Attending Clinician Unavailable Nurse, [facility] Attending Clinician Unavailable Jose Aguillon MD Attending Clinician JOSE AGUILLON Attending Clinician Unavailable Doctor Unassigned, [place] Attending Clinician Unavailable Gabriella Caro PA-C Attending Clinician KT VELÁSQUEZ Attending Clinician Unavailable KT VELÁSQUEZ Attending Clinician Unavailable Steve Vivas MD Attending Clinician [phone] Kt Velásquez MD Attending Clinician Mirella Bailey MD Attending Clinician Christopher Pradhan MD Attending Clinician Ultrasound, [facility] Attending Clinician Unavailable STEVE VIVAS Attending Clinician Unavailable Pob, [facility] Attending Clinician Unavailable Brie Grewal DO Attending Clinician 2, [facility] Attending Clinician Unavailable DEMAR GAMBLE Attending Clinician Unavailable MICHELL BHATTI Attending Clinician Unavailable Michell Jnoes Attending Clinician Unknown, Attending Attending Clinician Unavailable KT VELÁSQUEZ Admitting Clinician Unavailable Kt Velásquez MD Admitting Clinician Payers Payer Name Policy Type Policy Number Effective Date Expiration Date Conchita grajeda [facility] STAR [id number] 2022 00:00:00 MEDICAID [facility] [id number] 2022 2022 00:00:00 00:00:00 [facility] [id number] 2021 CHOICE ID STAR 00:00:00 Problems Condition Condition Condition Status Onset Resolution Last Treating Co mments Source Name Details Category Date Date Treatment Clinician Date Disease Active 2021-04 U nivers anemia anemia 0-28 ity of 00:00: [place] 00 Medical [place] S/P S/P Disease Active 2021-04 Univers 0-28 ity of section section 00:00: [address] 40 weeks 40 weeks Disease Active 2021-04 Unive rs gestation gestation 0-26 ity of of of 00:00: [place] 00 [facility] 39 weeks 39 weeks Disease Active 2021-04 Unive rs gestation gestation 0-26 ity of of of 00:00: [place] 00 [facility] Gastroesop Gastroesop Disease Active 2021-04 U nivers hageal hageal 0-12 ity of reflux reflux 00:00: [place] disease, disease, 00 Medica l unspecifie unspecifie Br anch d whether d whether esophagiti esophagiti s present s present Supervisio Supervisio Disease Active U nivers n of other n of other 3-31 it y of normal normal 00:00: [place] 00 [facility] Previous Previous Disease Active Unive rs 3-31 ity of section section 00:00: [place] complicati complicati 00 Me dical ng ng [place] Allergies, Adverse Reactions, Alerts Allergy Allergy Status Severity Reaction(s) Onset Inactive Treating Comm ents Source Name Type Date Date Clinician NO KNOWN Drug Active Univers ALLERGIE Class ity of S [facility] Social History Social Habit Start Date Stop Date Quantity Comments Source ASSERTION 2021-05-18 University of 00:00:00 [facility] History SDOH University o f Alcohol Frequency [place] M edical Branch History SDOH University o f Alcohol Std [place] Medical Drinks Branch History SDOH University o f Alcohol Binge [place] Medic al Branch History of Passive smoker University of tobacco use [facility] Exposure to 2022-03-22 2022-04-01 Not sure [facility] SARS-CoV-2 00:00:00 14:37:00 [facility] (event) [place] Alcohol intake 2022-04-01 2022-04-01 Ex-drinker University 00:00:00 00:00:00 (finding) [facility] Tobacco use and 2022-02-06 2022-02-06 Smokeless tobacco Un iversity of exposure 00:00:00 00:00:00 non-user [facility] Alcohol Comment 2021-07-12 2021-07-12 pt quit when Univers ity of 00:00:00 00:00:00 found out was [place] Medic al Branch Sex Assigned At [birth year] Universit y of 00:00:00 00:00:00 [facility] Smoking Status Start Date Stop Date Source Never smoked tobacco [facility] Medications Ordered Filled Start Stop Current Ordering Indication Dosage Frequency Signature Comments Components Source Medication Medication Date Date Medication? Clinician (SIG) Name Name medroxyPROG 2021-04- No [id number] 150mg Univers ESTERone 06-02 ity of (DEPO-PROVE 22:30: 22:02 [facility]) syringe 00 :00 Medical 150 mg [place] medroxyPROG 2021-04- No [id number] 150mg 150 mg, Univers ESTERone 06-02 Intramuscu ity of (DEPO-PROVE 22:30: 22:02 lar, ONCE, [place] RA) syringe 00 :00 1 dose, On Me dical 150 mg [facility] 04/01/22 at 1630, Routine ascorbic 2021-04 Yes Take by Univer s acid 2-15 mouth. ity of (VITAMIN C 14:06: [place] ORAL) 03 [facility] ascorbic 2021-04 Yes Take by Univer s acid 2-15 mouth. ity of (VITAMIN C 14:06: [place] ORAL) [facility] ascorbic 2021-04 Yes Take by Univer s acid 2-15 mouth. ity of (VITAMIN C 14:06: [place] ORAL) 03 [facility] ascorbic 2021-04 Yes Take by Univer s acid 0-28 mouth. ity of (VITAMIN C 14:03: [place] ORAL) 44 [facility] ascorbic 2021-04 Yes Take by Univer s acid 0-28 mouth. ity of (VITAMIN C 14:03: [place] ORAL) 44 Medical Branch ascorbic 2021-04 Yes Take by [facility] s acid 0-28 mouth. ity of (VITAMIN C 14:03: [place] ORAL) 44 Medical Branch lactated 2021-04- No 500mL at 999 Unive rs ringers IV 0-28 10-28 mL/hr, 500 it y of infusion 13:45: 13:32 mL, [place] 500 mL 00 :02 Intravenou Medical s, ONCE, 1 Branch dose, On Fri02/08/22 at 0845, Routine PNV 2021-04- No Take by Univers no.95/brunilda 0-28 10-28 mouth. ity o f us 06:27: 00:00 [place] fum/folic 46 :00 Medical ac Branch ( ORAL) PNV 2021-04- No Take by Univers no.95/brunilda 0-28 10-28 mouth. ity o f us 06:27: 00:00 [place] fum/folic 46 :00 Medical ac Branch ( ORAL) 2021-04 Yes [id number] 1{tbl} Take 1 Univers vitamin 0-28 tablet by ity of w/FA tablet 00:00: mouth in [place] 00 the Medical morning. Branch docusate 2021-04 Yes [id number] 200mg Take 2 U nivers 100 mg 0-28 capsules ity of capsule 00:00: by mouth [place] 00 once daily Medical as needed Branch for Constipati on. ferrous 2021-04 Yes [id number] 325mg Take 1 Un destiny sulfate 325 0-28 tablet by ity of mg (65 mg 00:00: mouth in [facility] s iron) 00 the Medical tablet morning Branch and 1 tablet in the evening. ibuprofen 2021-04 Yes [id number] 600mg Take 1 Univers 600 mg 0-28 tablet by ity of tablet 00:00: mouth [place] 00 every 6 Medical (six) Branch hours as needed (Pain). Take with food or milk. HYDROcodone 2021-04 Yes [id number] 1{tbl} Take 1 Un destiny -acetaminop 0-28 tablet by ity of hen 5-325 00:00: mouth [place] mg tablet 00 every 6 Medical (six) Branch hours as needed (Pain scale above 4) for up to 10 doses. Do not exceed 3 grams of acetaminop hen in 24 hours. Indication s: acute pain 2021-04 Yes [id number] 1{tbl} Take 1 Univers vitamin 0-28 tablet by ity of w/FA tablet 00:00: mouth in [place] 00 the Medical morning. Branch docusate 2021-04 Yes [id number] 200mg Take 2 U nivers 100 mg 0-28 capsules ity of capsule 00:00: by mouth [place] 00 once daily Medical as needed Branch for Constipati on. ferrous 2021-04 Yes [id number] 325mg Take 1 Un destiny sulfate 325 0-28 tablet by ity of mg (65 mg 00:00: [place] iron) 00 the Medical tablet morning Branch and 1 tablet in the evening. ibuprofen 2021-04 Yes [id number] 600mg Take 1 Univers 600 mg 0-28 tablet by ity of tablet 00:00: mouth [place] 00 every 6 Medical (six) Branch hours as needed (Pain). Take with food or milk. HYDROcodone 2021-04 Yes [id number] 1{tbl} Take 1 Un destiny -acetaminop 0-28 tablet by ity of hen 5-325 00:00: mouth [place] mg tablet 00 every 6 Medical (six) Branch hours as needed (Pain scale above 4) for up to 10 doses. Do not exceed 3 grams of acetaminop hen in 24 hours. Indication s: acute pain 2021-04 Yes [id number] 1{tbl} Take 1 Univers vitamin 0-28 tablet by ity of w/FA tablet 00:00: mouth in [place] 00 the Medical morning. Branch docusate 2021-04 Yes [id number] 200mg Take 2 U nivers 100 mg 0-28 capsules ity of capsule 00:00: by mouth [place] 00 once daily Medical as needed Branch for Constipati on. ferrous 2021-04 Yes [id number] 325mg Take 1 Un destiny sulfate 325 0-28 tablet by ity of mg (65 mg 00:00: [place] iron) 00 the Medical tablet morning Branch and 1 tablet in the evening. ibuprofen 2021-04 Yes [id number] 600mg Take 1 Univers 600 mg 0-28 tablet by ity of tablet 00:00: mouth [place] 00 every 6 Medical (six) Branch hours as needed (Pain). Take with food or milk. HYDROcodone 2021-04 Yes [id number] 1{tbl} Take 1 Un destiny -acetaminop 0-28 tablet by ity of hen 5-325 00:00: mouth [place] mg tablet 00 every 6 Medical (six) Branch hours as needed (Pain scale above 4) for up to 10 doses. Do not exceed 3 grams of acetaminop hen in 24 hours. Indication s: acute pain 2021-04 Yes [id number] 1{tbl} Take 1 Univers vitamin 0-28 tablet by ity of w/FA tablet 00:00: mouth in [place] 00 the Medical morning. Branch docusate 2021-04 Yes [id number] 200mg Take 2 U nivers 100 mg 0-28 capsules ity of capsule 00:00: by mouth [place] 00 once daily Medical as needed Branch for Constipati on. ferrous 2021-04 Yes [id number] 325mg Take 1 Un destiny sulfate 325 0-28 tablet by ity of mg (65 mg 00:00: [place] iron) 00 the Medical tablet morning Branch and 1 tablet in the evening. ibuprofen 2021-04 Yes [id number] 600mg Take 1 Univers 600 mg 0-28 tablet by ity of tablet 00:00: mouth [place] 00 every 6 Medical (six) Branch hours as needed (Pain). Take with food or milk. HYDROcodone 2021-04 Yes [id number] 1{tbl} Take 1 Un destiny -acetaminop 0-28 tablet by ity of hen 5-325 00:00: mouth [place] mg tablet 00 every 6 Medical (six) Branch hours as needed (Pain scale above 4) for up to 10 doses. Do not exceed 3 grams of acetaminop hen in 24 hours. Indication s: acute pain 2021-04 Yes [id number] 1{tbl} Take 1 Univers vitamin 0-28 tablet by ity of w/FA tablet 00:00: mouth in [place] 00 the Medical morning. Branch docusate 2021-04 Yes [id number] 200mg Take 2 U nivers 100 mg 0-28 capsules ity of capsule 00:00: by mouth [place] 00 once daily Medical as needed Branch for Constipati on. ferrous 2021-04 Yes [id number] 325mg Take 1 Un destiny sulfate 325 0-28 tablet by ity of mg (65 mg 00:00: [place] iron) 00 the Medical tablet morning Branch and 1 tablet in the evening. ibuprofen 2021-04 Yes [id number] 600mg Take 1 Univers 600 mg 0-28 tablet by ity of tablet 00:00: mouth [place] 00 every 6 Medical (six) Branch hours as needed (Pain). Take with food or milk. HYDROcodone 2021-04 Yes [id number] 1{tbl} Take 1 Un destiny -acetaminop 0-28 tablet by ity of hen 5-325 00:00: mouth [place] mg tablet 00 every 6 Medical (six) Branch hours as needed (Pain scale above 4) for up to 10 doses. Do not exceed 3 grams of acetaminop hen in 24 hours. Indication s: acute pain 2021-04 Yes [id number] 1{tbl} Take 1 Univers vitamin 0-28 tablet by ity of w/FA tablet 00:00: mouth in [place] 00 the Medical morning. Branch docusate 2021-04 Yes [id number] 200mg Take 2 U nivers 100 mg 0-28 capsules ity of capsule 00:00: by mouth [place] 00 once daily Medical as needed Branch for Constipati on. ferrous 2021-04 Yes [id number] 325mg Take 1 Un destiny sulfate 325 0-28 tablet by ity of mg (65 mg 00:00: mouth [place] iron) 00 the Medical tablet morning Branch and 1 tablet in the evening. ibuprofen 2021-04 Yes [id number] 600mg Take 1 Univers 600 mg 0-28 tablet by ity of tablet 00:00: mouth [place] 00 every 6 Medical (six) Branch hours as needed (Pain). Take with food or milk. HYDROcodone 2021-04 Yes [id number] 1{tbl} Take 1 Un destiny -acetaminop 0-28 tablet by ity of hen 5-325 00:00: mouth [place] mg tablet 00 every 6 Medical (six) Branch hours as needed (Pain scale above 4) for up to 10 doses. Do not exceed 3 grams of acetaminop hen in 24 hours. Indication s: acute pain ibuprofen 2021-04 Yes 600mg 600 mg, Univ ers (IBU) 0-27 Oral, Q6H, ity of tablet 600 17:00: First dose [place] mg 00 (after Medical last Branch modificati on) on [facility] 02/07/22 at 1200, Until Discontinu ed, Routine ibuprofen 2021-04 Yes 600mg 600 mg, Univ ers (IBU) 0-27 Oral, Q6H, ity of tablet 600 17:00: First dose [place] mg 00 (after Medical last Branch modificati on) on [facility] 02/07/22 at 1200, Until Discontinu ed, Routine ascorbic 2021-04 Yes 500mg 500 mg, Unive rs acid 0-27 Oral, ity of (vitamin C) 14:00: DAILY, [place] (VITAMIN C) 00 First dose Me dical tablet 500 on [facility] mg 02/07/22 at 0900, Until Discontinu ed, Routine foLIC acid 2021-04 Yes 1mg 1 mg, Univer s (FOLATE) 0-27 Oral, ity of tablet 1 mg 14:00: DAILY, [place] 00 First dose Medical on [facility] 02/07/22 at 0900, Until Discontinu ed, Routine ascorbic 2021-04 Yes 500mg 500 mg, Unive rs acid 0-27 Oral, ity of (vitamin C) 14:00: DAILY, [place] (VITAMIN C) 00 First dose Me dical tablet 500 on [facility] mg 02/07/22 at 0900, Until Discontinu ed, Routine foLIC acid 2021-04 Yes 1mg 1 mg, Univer s (FOLATE) 0-27 Oral, ity of tablet 1 mg 14:00: DAILY, [place] 00 First dose Medical on [facility] 02/07/22 at 0900, Until Discontinu ed, Routine rho(D) 2021-04 Yes 300ug 300 mcg, Univer s immune 0-27 Intramuscu ity of globulin 07:49: lar, ONCE, [place] (RHOGAM) 13 For 1 Medical syringe 300 dose, Branch mcg Conditiona l, Routine rho(D) 2021-04 Yes 300ug 300 mcg, Univer s immune 0-27 Intramuscu ity of globulin 07:49: lar, ONCE, [place] (RHOGAM) 13 For 1 Medical syringe 300 dose, Branch mcg Conditiona l, Routine HYDROcodone 2021-04 Yes 2{tbl} 2 tablet, Univers -acetaminop 0-27 Oral, ity of hen (NORCO 07:49: Q6HPRN, [place] 5) 5-325 mg 08 Starting Medi emma tablet 2 on [facility] tablet 02/07/22 at 0249, Until Discontinu ed, Routine, Pain (scale 7-10), Alternate with Ibuprofen HYDROcodone 2021-04 Yes 1{tbl} 1 tablet, Univers -acetaminop 0-27 Oral, ity of hen (NORCO 07:49: Q6HPRN, [place] 5) 5-325 mg 08 Starting Medi emma tablet 1 on [facility] Branch tablet 02/07/22 at 0249, Until Discontinu ed, Routine, Pain (scale 4-6), Alternate with Ibuprofen diphenhydrA 2021-04 Yes 25mg 25 mg, Univ ers MINE 0-27 Slow IV ity of (BENADRYL) 07:49: Push, [place] injection 08 Q6HPRN, Medical 25 mg Starting Branch on [facility] 02/07/22 at 0249, Until Discontinu ed, Routine, Itching diphenhydrA 2021-04 Yes 25mg 25 mg, Univ ers MINE 0-27 Oral, ity of (BENADRYL) 07:49: Q6HPRN, [place] tablet 25 08 Starting Medica l mg on [facility] Branch 02/07/22 at 0249, Until Discontinu ed, Routine, Sleep, Itching ondansetron 2021-04 Yes 4mg 4 mg, Slow Univers (ZOFRAN 0-27 IV Push, ity of (PF)) 07:49: Q8HPRN, [place] injection 4 08 Starting Medi emma mg on [facility] Branch 02/07/22 at 0249, Until Discontinu ed, Routine, Nausea and Vomiting (N/V) bisacodyL 2021-04 Yes 10mg 10 mg, Univer s (DULCOLAX) 0-27 Rectal, ity of suppository 07:49: QDAILYPRN, [place] 10 mg 08 Starting Medical on [facility] Branch 02/07/22 at 0249, Until Discontinu ed, Routine, Constipati on simethicone 2021-04 Yes 160mg 160 mg, Un destiny (GAS RELIEF 0-27 Oral, ity of (SIMETHICON 07:49: PC+HSPRN, [place] E)) 08 Starting Medical chewable on [facility] Branch tablet 160 02/07/22 mg at 0249, Until Discontinu ed, Routine, Gas docusate 2021-04 Yes 200mg 200 mg, Unive rs (COLACE) 0-27 Oral, ity of capsule 200 07:49: QDAILYPRN, [place] mg 08 Starting Medical on [place] Branch 02/07/22 at 0249, Until Discontinu ed, Routine, Constipati on magnesium 2021-04 Yes 30mL 30 mL, Univer s hydroxide 0-27 Oral, ity of (MILK OF 07:49: QDAILYPRN, [place] MAGNESIA) 08 Starting Medica l 400 mg/5 mL on [place] Branch suspension 02/07/22 30 mL at 0249, Until Discontinu ed, Routine, Constipati on lactated 2021-04 Yes 1000mL at 125 Unive rs ringers IV 0-27 mL/hr, ity of infusion 07:49: 1,000 mL, [place] 1,000 mL 08 IV Medical Infusion, Branch PRN, 1 dose, Starting on [place] 02/07/22 at 0249, Until Discontinu ed, Routine HYDROcodone 2021-04 Yes 2{tbl} 2 tablet, Univers -acetaminop 0-27 Oral, ity of hen (NORCO 07:49: Q6HPRN, [place] 5) 5-325 mg 08 Starting Medi emma tablet 2 on [place] Branch tablet 02/07/22 at 0249, Until Discontinu ed, Routine, Pain (scale 7-10), Alternate with Ibuprofen HYDROcodone 2021-04 Yes 1{tbl} 1 tablet, Univers -acetaminop 0-27 Oral, ity of hen (NORCO 07:49: Q6HPRN, [place] 5) 5-325 mg 08 Starting Medi emma tablet 1 on [place] Branch tablet 02/07/22 at 0249, Until Discontinu ed, Routine, Pain (scale 4-6), Alternate with Ibuprofen diphenhydrA 2021-04 Yes 25mg 25 mg, Univ ers MINE 0-27 Slow IV ity of (BENADRYL) 07:49: Push, [place] injection 08 Q6HPRN, Medical 25 mg Starting Branch on [place] 02/07/22 at 0249, Until Discontinu ed, Routine, Itching diphenhydrA 2021-04 Yes 25mg 25 mg, Univ ers MINE 0-27 Oral, ity of (BENADRYL) 07:49: Q6HPRN, [place] tablet 25 08 Starting Medica l mg on [facility] 02/07/22 at 0249, Until Discontinu ed, Routine, Sleep, Itching ondansetron 2021-04 Yes 4mg 4 mg, Slow Univers (ZOFRAN 0-27 IV Push, ity of (PF)) 07:49: Q8HPRN, [place] injection 4 08 Starting Medi emma mg on [facility] 02/07/22 at 0249, Until Discontinu ed, Routine, Nausea and Vomiting (N/V) bisacodyL 2021-04 Yes 10mg 10 mg, Univer s (DULCOLAX) 0-27 Rectal, ity of suppository 07:49: QDAILYPRN, [place] 10 mg 08 Starting Medical on [facility] 02/07/22 at 0249, Until Discontinu ed, Routine, Constipati on simethicone 2021-04 Yes 160mg 160 mg, Un destiny (GAS RELIEF 0-27 Oral, ity of (SIMETHICON 07:49: PC+HSPRN, [place] E)) 08 Starting Medical chewable on [facility] tablet 160 02/07/22 mg at 0249, Until Discontinu ed, Routine, Gas docusate 2021-04 Yes 200mg 200 mg, Unive rs (COLACE) 0-27 Oral, ity of capsule 200 07:49: QDAILYPRN, [place] mg 08 Starting Medical on [facility] 02/07/22 at 0249, Until Discontinu ed, Routine, Constipati on magnesium 2021-04 Yes 30mL 30 mL, Univer s hydroxide 0-27 Oral, ity of (MILK OF 07:49: QDAILYPRN, [place] MAGNESIA) 08 Starting Medica l 400 mg/5 mL on [facility] suspension 02/07/22 30 mL at 0249, Until Discontinu ed, Routine, Constipati on lactated 2021-04 Yes 1000mL at 125 Unive rs ringers IV 0-27 mL/hr, ity of infusion 07:49: 1,000 mL, [place] 1,000 mL 08 IV Medical Infusion, Branch PRN, 1 dose, Starting on [facility] 02/07/22 at 0249, Until Discontinu ed, Routine ketorolac 2021-04 No 30mg 30 mg, Unive rs (TORADOL) 002-07 Slow IV ity of injection 06:30: 06:25 [place], [place] 30 mg 00 :00 ONCE, 1 Medical dose, On Branch [place] 02/07/22 at 0130, FREDRICK, PACU HYDROmorpho 2021-04 Yes .2mg 0.2 mg, Uni vers ne 0-27 Slow IV ity of (DILAUDID) 06:05: Push, [place] injection 44 Q5MIN PRN, Medi emma 0.2 mg 10 doses, Branch Starting on [place] 02/07/22 at 0105, Until Discontinu ed, Routine, Pain (scale 7-10), PACU
Us e approved by (Faculty): PACU USE -ANESTHESI A SERVICE-HY DROMORPHON E INJECTIONS FENTanyl PF 2021-04 Yes 25ug 25 mcg, Uni vers (SUBLIMAZE 0 Slow IV ity of (PF)) 06:05: [place], [place] injection 44 Q5MIN PRN, Medi emma 25 mcg 4 doses, Branch Starting on [place] 02/07/22 at 0105, Until Discontinu ed, Routine, Pain (scale 4-6), PACU proMETHazin 2021-04 Yes 12.5mg 12.5 mg, Univers e 0 IV ity of (PHENERGAN) 06:05: Piggyback, [place] 12.5 mg in 44 at 200 Medical NS 50 mL IV mL/hr Branch piggyback Administer (CNR) over 15 Minutes, PRN, 1 dose, Starting on [place] 02/07/22 at 0105, Until Discontinu ed, Routine, Nausea and Vomiting (N/V), PACU HYDROmorpho 2021-04 Yes .2mg 0.2 mg, Uni vers ne 0-27 Slow IV ity of (DILAUDID) 06:05: Push, [place] injection 44 Q5MIN PRN, Medi emma 0.2 mg 10 doses, Branch Starting on [place] 02/07/22 at 0105, Until Discontinu ed, Routine, Pain (scale 7-10), PACU
Us e approved by (Faculty): PACU USE -ANESTHESI A SERVICE-HY DROMORPHON E INJECTIONS FENTanyl PF 2021-04 Yes 25ug 25 mcg, Uni vers (SUBLIMAZE 0-27 Slow IV ity of (PF)) 06:05: Push, [place] injection 44 Q5MIN PRN, Medi emma 25 mcg 4 doses, Branch Starting on [place] 02/07/22 at 0105, Until Discontinu ed, Routine, Pain (scale 4-6), PACU proMETHazin 2021-04 Yes 12.5mg 12.5 mg, Univers e 027 IV ity of (PHENERGAN) 06:05: Piggyback, [place] 12.5 mg in 44 at 200 Medical NS 50 mL IV mL/hr Branch piggyback Administer (CNR) over 15 Minutes, PRN, 1 dose, Starting on [place] 02/07/22 at 0105, Until Discontinu ed, Routine, Nausea and Vomiting (N/V), PACU terbutaline 2021-04- No .25mg 0.25 mg, Univers (BRETHINE) 02-06 Intravenou it y of injection 18:30: 17:43 s, ONCE, 1 [place] 0.25 mg 00 :00 dose, On Medical Wed Branch 02/06/22 at 1330, Routine acetaminoph 2021-04- No 650mg 650 mg, U nivers en 02-07 Oral, ity of (TYLENOL) 17:00: 03:35 ONCE, 1 [place] tablet 650 00 :00 dose, On Medic al mg Fri Branch 02/06/22 at 1200, Routine lactated 2021-04- No 1000mL at 125 Univ ers ringers IV 0- mL/hr, ity of infusion 17:00: 07:49 1,000 mL, [place] 1,000 mL 00 :11 IV Medical Infusion, Branch CONTINUOUS , Starting on Fri02/06/22 at 1200, Until [place] 02/07/22 at 0249, Routine ceFAZolin 2021-04- No 2000mg 2 g (2,000 Univers in 0.9% 0- mg), IV ity of sodium 16:49: 04:06 [place]back, [place] chloride 54 :00 O.R. Medical (ANCEF) 2 HOLDING Branch gram/100 mL ONCE, 1 RTU 2 g dose, Starting on 02/06/22 at 1149, Until 02/11/22 at 2359, Administer over 30 Minutes, 100 mL
Reas on for Anti-Infec tive: Surgical Prophylaxi s
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
Duration of therapy: within 24 hours of surgery sodium 2021-04- No 30mL 30 mL, Univers citrate-cit 0-26 10-27 Oral, ity of mercedes acid 16:49: 03:35 PRE-PROCED [place] (BICITRA) 54 :00 URE ONCE, Medic al 500-334 1 dose, Branch mg/5 mL Starting solution 30 on Fri mL 02/06/22 at 1149, Until 02/08/22 at 2359, Routine, Surgery/Pr ocedure PNV 2021-04 Yes Take by Univers no.95/brunilda 0-26 mouth. ity of us 11:31: [place] fum/folic 53 Medical ac Branch ( ORAL) ascorbic 2021-04 Yes Take by Univer s acid 0-26 mouth. ity of (VITAMIN C 11:31: [place] ORAL) 53 Medical Branch ferrous Yes [id number] 325mg Take 1 Un destiny sulfate 325 8-11 tablet by ity of mg (65 mg 00:00: mouth in [place] iron) 00 the Medical tablet morning Branch and 1 tablet in the evening. ferrous Yes [id number] 325mg Take 1 Un destiny sulfate 325 8-11 tablet by ity of mg (65 mg 00:00: mouth in [place] iron) 00 the Medical tablet morning Branch and 1 tablet in the evening. ferrous Yes [id number] 325mg Take 1 Un destiny sulfate 325 8-11 tablet by ity of mg (65 mg 00:00: mouth in [place] iron) 00 the Medical tablet morning Branch and 1 tablet in the evening. ferrous 0 Yes [id number] 325mg Take 1 Un destiny sulfate 325 8-11 tablet by ity of mg (65 mg 00:00: mouth in [place] iron) 00 the Medical tablet morning Branch and 1 tablet in the evening. ferrous Yes [id number] 325mg Take 1 Un destiny sulfate 325 8-11 tablet by ity of mg (65 mg 00:00: mouth in [place] iron) 00 the Medical tablet morning Branch and 1 tablet in the evening. ferrous 0 Yes [id number] 325mg Take 1 Un destiny sulfate 325 8-11 tablet by ity of mg (65 mg 00:00: mouth [place] iron) 00 the Medical tablet morning Branch and 1 tablet in the evening. ferrous 0 Yes [id number] 325mg Take 1 Un destiny sulfate 325 8-11 tablet by ity of mg (65 mg 00:00: mouth [place] iron) 00 the Medical tablet morning Branch and 1 tablet in the evening. ferrous 0 Yes [id number] 325mg Take 1 Un destiny sulfate 325 8-11 tablet by ity of mg (65 mg 00:00: mouth [place] iron) 00 the Medical tablet morning Branch and 1 tablet in the evening. ferrous Yes [id number] 325mg Take 1 Un destiny sulfate 325 8-11 tablet by ity of mg (65 mg 00:00: mouth [place] iron) 00 the Medical tablet morning Branch and 1 tablet in the evening. ferrous Yes [id number] 325mg Take 1 [facility] destiny sulfate 325 8-11 tablet by [facility] mg (65 mg [place]: [place] 00 the Medical tablet morning Branch and 1 tablet in the evening. ferrous 0 Yes [id number] 325mg Take 1 [facility] destiny sulfate 325 8-11 tablet by [facility] mg (65 mg [place]: [place] 00 the [facility] tablet morning Branch and 1 tablet in the evening. ferrous 0 Yes [id number] 325mg Take 1 [facility] sulfate 325 8-11 tablet by [facility] mg (65 mg [place]: [place] 00 the Medical tablet morning Branch and 1 tablet in the evening. ferrous 0 Yes [id number] 325mg Take 1 [facility] sulfate 325 8-11 tablet by [facility] mg (65 mg [place]: [place] 00 the Medical tablet morning Branch and 1 tablet in the evening. ferrous 0 Yes [id number] 325mg Take 1 [facility] sulfate 325 8-11 tablet by [facility] mg (65 mg [place]: [place] 00 the Medical tablet morning Branch and 1 tablet in the evening. ferrous Yes [id number] 325mg Take 1 [facility] sulfate 325 8-11 tablet by [facility] mg (65 mg [place]: [place] 00 the Medical tablet morning Branch and 1 tablet in the evening. ferrous 2021- No [id number] 325mg Take 1 U nivers sulfate 325 8-11 10-28 tablet by it y of mg (65 mg 00:00: 00:00 mouth [place]) 00 :00 the Medical tablet morning Branch and 1 tablet in the evening. ferrous 2021- No [id number] 325mg Take 1 U nivers sulfate 325 8-11 10-28 tablet by it y of mg (65 mg 00:00: 00:00 mouth [place]) 00 :00 the Medical tablet morning Branch and 1 tablet in the evening. ascorbic Yes Take by Univer s acid 7-21 mouth. ity of (VITAMIN C 16:18: [place] ORAL) 44 Medical Branch ascorbic 0 Yes Take by Univer s acid 7-21 mouth. ity of (VITAMIN C 16:18: [place] ORAL) 44 Medical Branch ascorbic 0 Yes Take by Univer s acid 7-21 mouth. ity of (VITAMIN C 16:18: [place] ORAL) 44 Medical Branch ascorbic 0 Yes Take by Univer s acid 7-21 mouth. ity of (VITAMIN C 16:18: [place] ORAL) 44 Medical Branch ascorbic 0 Yes Take by Univer s acid 7-21 mouth. ity of (VITAMIN C 16:18: [place] ORAL) 44 Medical Branch ascorbic 0 Yes Take by Univer s acid 7-21 mouth. ity of (VITAMIN C 16:18: [place] ORAL) 44 Medical Branch ascorbic 0 Yes Take by Univer s acid 7-21 mouth. ity of (VITAMIN C 16:18: [place] ORAL) 44 Medical Branch ascorbic 2021-0 Yes Take by Univer s acid 7-21 mouth. ity of (VITAMIN C 16:18: [place] ORAL) 44 Medical Branch ascorbic 0 Yes Take by Univer s acid 7-21 mouth. ity of (VITAMIN C 16:18: [place] ORAL) 44 Medical Branch ascorbic 2022-0 Yes Take by Univer s acid 7-21 mouth. ity of (VITAMIN C 16:18: [place] ORAL) 44 Medical Branch ascorbic 0 Yes Take by Univer s acid 7-21 mouth. ity of (VITAMIN C 16:18: [place] ORAL) 44 Medical Branch ascorbic 0 Yes Take by Univer s acid 7-21 mouth. ity of (VITAMIN C 16:18: [place] ORAL) 44 Medical Branch ascorbic 0 Yes Take by Univer s acid 7-21 mouth. ity of (VITAMIN C 16:18: [place] ORAL) 44 Medical Branch ascorbic 0 Yes Take by Univer s acid 7-21 mouth. ity of (VITAMIN C 16:18: [place] ORAL) 44 Medical Branch ascorbic 0 Yes Take by Univer s acid 7-21 mouth. ity of (VITAMIN C 16:18: [place] ORAL) 44 Medical Branch ascorbic 0 Yes Take by Univer s acid 7-21 mouth. ity of (VITAMIN C 16:18: [place] ORAL) 44 Medical Branch ascorbic 0 Yes Take by Univer s acid 7-21 mouth. ity of (VITAMIN C 16:18: [place] ORAL) 44 Medical Branch ascorbic 0 Yes Take by Univer s acid 7-21 mouth. ity of (VITAMIN C 16:18: [place] ORAL) 44 Medical Branch ferrous 2021-0 Yes [id number] 325mg Take 1 Un destiny sulfate 325 6-21 tablet by ity of mg (65 mg 00:00: mouth 2 [place] iron) 00 (two) Medical tablet times Branch daily. ferrous 2021-0 Yes [id number] 325mg Take 1 Un destiny sulfate 325 6-21 tablet by ity of mg (65 mg 00:00: mouth 2 [place] iron) 00 (two) Medical tablet times Branch daily. ferrous 2021-0 Yes [id number] 325mg Take 1 Un destiny sulfate 325 6-21 tablet by ity of mg (65 mg 00:00: mouth 2 [place] iron) 00 (two) Medical tablet times Branch daily. ferrous 2021-0 Yes [id number] 325mg Take 1 Un destiny sulfate 325 6-21 tablet by ity of mg (65 mg 00:00: mouth 2 [place] iron) 00 (two) Medical tablet times Branch daily. ferrous 2021-0 Yes [id number] 325mg Take 1 Un destiny sulfate 325 6-21 tablet by ity of mg (65 mg 00:00: mouth 2 [place] iron) 00 (two) Medical tablet times Branch daily. ferrous Yes [id number] 325mg Take 1 [facility] sulfate 325 6-21 tablet by ity of mg (65 mg 00:00: mouth 2 [place] iron) 00 (two) Medical tablet times Branch daily. ferrous Yes [id number] 325mg Take 1 [facility] sulfate 325 6-21 tablet by ity of mg (65 mg 00:00: mouth 2 [place] iron) 00 (two) Medical tablet times Branch daily. ferrous Yes [id number] 325mg Take 1 [facility] sulfate 325 6-21 tablet by ity of mg (65 mg 00:00: mouth 2 [place] iron) 00 (two) Medical tablet times Branch daily. ferrous Yes [id number] 325mg Take 1 Un destiny sulfate 325 6-21 tablet by ity of mg (65 mg 00:00: mouth 2 [place] iron) 00 (two) Medical tablet times Branch daily. ferrous 2021- No [id number] 325mg Take 1 U nivers sulfate 325 6-21 08-11 tablet by it y of mg (65 mg 00:00: 00:[place] :00 (two) Medical tablet times Branch daily. metroNIDAZO Yes [id number] 500mg Take 1 [facility] LE 500 mg 5-25 tablet by ity o f tablet 00:00: mouth [place] 00 every 12 Medical (twelve) Branch hours. metroNIDAZO Yes [id number] 500mg Take 1 [facility] LE 500 mg 5-25 tablet by ity o f tablet 00:00: mouth [place] 00 every 12 Medical (twelve) Branch hours. metroNIDAZO 0 Yes [id number] 500mg Take 1 [facility] LE 500 mg 5-25 tablet by ity o f tablet 00:00: mouth [place] 00 every 12 Medical (twelve) Branch hours. metroNIDAZO 0 Yes [id number] 500mg Take 1 [facility] LE 500 mg 5-25 tablet by ity o f tablet 00:00: mouth [place] 00 every 12 Medical (twelve) Branch hours. metroNIDAZO 0 Yes [id number] 500mg Take 1 [facility] LE 500 mg 5-25 tablet by ity o f tablet 00:00: mouth [place] 00 every 12 Medical (twelve) Branch hours. metroNIDAZO 2021-0 Yes [id number] 500mg Take 1 [facility] LE 500 mg 5-25 tablet by ity o f tablet 00:00: mouth [place] 00 every 12 Medical (twelve) Branch hours. metroNIDAZO 2021-0 Yes [id number] 500mg Take 1 [facility] LE 500 mg 5-25 tablet by ity o f tablet 00:00: mouth [place] 00 every 12 Medical (twelve) Branch hours. metroNIDAZO 2021-0 Yes [id number] 500mg Take 1 [facility] LE 500 mg 5-25 tablet by ity o f tablet 00:00: mouth [place] 00 every 12 Medical (twelve) Branch hours. metroNIDAZO 2021-0 Yes [id number] 500mg Take 1 [facility] LE 500 mg 5-25 tablet by ity o f tablet 00:00: mouth [place] 00 every 12 Medical (twelve) Branch hours. metroNIDAZO 2021-0 Yes [id number] 500mg Take 1 [facility] LE 500 mg 5-25 tablet by ity o f tablet 00:00: mouth [place] 00 every 12 Medical (twelve) Branch hours. metroNIDAZO 2021-0 Yes [id number] 500mg Take 1 [facility] LE 500 mg 5-25 tablet by ity o f tablet 00:00: mouth [place] 00 every 12 Medical (twelve) Branch hours. metroNIDAZO 2021-0 Yes [id number] 500mg Take 1 [facility] LE 500 mg 5-25 tablet by ity o f tablet 00:00: mouth [place] 00 every 12 Medical (twelve) Branch hours. metroNIDAZO 2021-0 Yes [id number] 500mg Take 1 [facility] LE 500 mg 5-25 tablet by ity o f tablet 00:00: mouth [place] 00 every 12 Medical (twelve) Branch hours. metroNIDAZO 2021-0 Yes [id number] 500mg Take 1 [facility] LE 500 mg 5-25 tablet by ity o f tablet 00:00: mouth [place] 00 every 12 Medical (twelve) Branch hours. metroNIDAZO 2021-0 2- No [id number] 500mg Take 1 [facility] LE 500 mg 5-25 09-23 tablet by ity of tablet 00:00: 00:00 mouth [place] 00 :00 every 12 Medical (twelve) Branch hours. metroNIDAZO 2021-0 Yes [id number] 500mg Take 1 [facility] LE (FLAGYL) 4-01 tablet by ity of 500 mg 00:00: mouth [place] tablet 00 every 12 Medical (twelve) Branch hours. metroNIDAZO 2021-0 Yes [id number] 500mg Take 1 [facility] LE (FLAGYL) 4-01 tablet by ity of 500 mg 00:00: mouth [place] tablet 00 every 12 Medical (twelve) Branch hours. metroNIDAZO 2021-0 Yes [id number] 500mg Take 1 [facility] LE (FLAGYL) 4-01 tablet by ity of 500 mg 00:00: mouth [place] tablet 00 every 12 Medical (twelve) Branch hours. metroNIDAZO 2021-0 Yes [id number] 500mg Take 1 [facility] LE (FLAGYL) 4-01 tablet by ity of 500 mg 00:00: mouth [place] tablet 00 every 12 Medical (twelve) Branch hours. metroNIDAZO 2021-0 Yes [id number] 500mg Take 1 [facility] LE (FLAGYL) 4-01 tablet by ity of 500 mg 00:00: mouth [place] tablet 00 every 12 Medical (twelve) Branch hours. metroNIDAZO 2021-0 Yes [id number] 500mg Take 1 [facility] LE (FLAGYL) 4-01 tablet by ity of 500 mg 00:00: mouth [place] tablet 00 every 12 Medical (twelve) Branch hours. metroNIDAZO 2021-0 Yes [id number] 500mg Take 1 [facility] LE (FLAGYL) 4-01 tablet by ity of 500 mg 00:00: mouth [place] tablet 00 every 12 Medical (twelve) Branch hours. metroNIDAZO 2021-0 Yes [id number] 500mg Take 1 [facility] LE (FLAGYL) 4-01 tablet by ity of 500 mg 00:00: mouth [place] tablet 00 every 12 Medical (twelve) Branch hours. metroNIDAZO 2021-0 Yes [id number] 500mg Take 1 [facility] LE (FLAGYL) 4-01 tablet by ity of 500 mg 00:00: mouth [place] tablet 00 every 12 Medical (twelve) Branch hours. metroNIDAZO 2021-0 Yes [id number] 500mg Take 1 [facility] LE (FLAGYL) 4-01 tablet by ity of 500 mg 00:00: mouth [place] tablet 00 every 12 Medical (twelve) Branch hours. metroNIDAZO 2021-0 Yes [id number] 500mg Take 1 [facility] LE (FLAGYL) 4-01 tablet by ity of 500 mg 00:00: mouth [place] tablet 00 every 12 Medical (twelve) Branch hours. metroNIDAZO 2022-0 Yes [id number] 500mg Take 1 Univers LE (FLAGYL) 4-01 tablet by ity of 500 mg 00:00: mouth [place] tablet 00 every 12 Medical (twelve) Branch hours. metroNIDAZO 2-0 Yes [id number] 500mg Take 1 Univers LE (FLAGYL) 4-01 tablet by ity of 500 mg 00:00: mouth [place] tablet 00 every 12 Medical (twelve) Branch hours. metroNIDAZO 2021-0 Yes [id number] 500mg Take 1 Univers LE (FLAGYL) 4-01 tablet by ity of 500 mg 00:00: mouth [place] tablet 00 every 12 Medical (twelve) Branch hours. metroNIDAZO 2021-0 2022- No [id number] 500mg Take 1 [facility] LE (FLAGYL) 4-01 09-23 tablet by it y of 500 mg 00:00: 00:00 mouth [place] tablet 00 :00 every 12 Medical (twelve) Branch hours. PNV 2021-0 Yes Take by Univers no.95/brunilda 3-31 mouth. ity of us 14:16: [place] fum/folic 37 Medical ac Branch ( ORAL) PNV 2021-0 Yes Take by Univers no.95/brunilda 3-31 mouth. ity of us 14:16: [place] fum/folic 37 Medical ac Branch ( ORAL) PNV 2021-0 Yes Take by Univers no.95/brunilda 3-31 mouth. ity of us 14:16: [place] fum/folic 37 Medical ac Branch ( ORAL) PNV 2021-0 Yes Take by Univers no.95/brunilda 3-31 mouth. ity of us 14:16: [place] fum/folic 37 Medical ac Branch ( ORAL) PNV 2-0 Yes Take by Univers no.95/brunilda 3-31 mouth. ity of us 14:16: [place] fum/folic 37 Medical ac Branch ( ORAL) PNV 2-0 Yes Take by Univers no.95/brunilda 3-31 mouth. ity of us 14:16: [place] fum/folic 37 Medical ac Branch ( ORAL) PNV 2021-0 Yes Take by Univers no.95/brunilda 3-31 mouth. ity of us 14:16: [place] fum/folic 37 Medical ac Branch ( ORAL) PNV 202-0 Yes Take by Univers no.95/brunilda 3-31 mouth. ity of us 14:16: [place] fum/folic 37 Medical ac Branch ( ORAL) PNV 202-0 Yes Take by Univers no.95/brunilda 3-31 mouth. ity of us 14:16: [place] fum/folic 37 Medical ac Branch ( ORAL) PNV 2021-0 Yes Take by Univers no.95/brunilda 3-31 mouth. ity of us 14:16: [place] fum/folic 37 Medical ac Branch ( ORAL) PNV 2021-0 Yes Take by Univers no.95/brunilda 3-31 mouth. ity of us 14:16: [place] fum/folic 37 Medical ac Branch ( ORAL) PNV 2021-0 Yes Take by Univers no.95/brunilda 3-31 mouth. ity of us 14:16: [place] fum/folic 37 Medical ac Branch ( ORAL) PNV 2021-0 Yes Take by Univers no.95/brunilda 3-31 mouth. ity of us 14:16: [place] fum/folic 37 Medical ac Branch ( ORAL) PNV 2021-0 Yes Take by Univers no.95/brunilda 3-31 mouth. ity of us 14:16: [place] fum/folic 37 Medical ac Branch ( ORAL) PNV 2021-0 Yes Take by Univers no.95/brunilda 3-31 mouth. ity of us 14:16: [place] fum/folic 37 Medical ac Branch ( ORAL) PNV 202-0 Yes Take by Univers no.95/brunilda 3-31 mouth. ity of us 14:16: [place] fum/folic 37 Medical ac Branch ( ORAL) PNV 2022-0 Yes Take by Univers no.95/br[place]ilda 3-31 mouth. ity of us 14:16: [place] fum/folic 37 Medical ac Branch ( ORAL) PNV 2021-0 Yes Take by Univers no.95/br[place]ilda 3-31 mouth. ity of us 14:16: [place] fum/folic 37 Medical ac Branch ( ORAL) PNV 202-0 Yes Take by Univers no.95/brunilda 3-31 mouth. ity of us 14:16: [place] fum/folic 37 Medical ac Branch ( ORAL) PNV 2022-0 Yes Take by Univers no.95/brunilda 3-31 mouth. ity of us 14:16: [place] fum/folic 37 Medical ac Branch ( ORAL) PNV 2021-0 Yes Take by Univers no.95/brunilda 3-31 mouth. ity of us 14:16: [place] fum/folic 37 Medical ac Branch ( ORAL) PNV 2021-0 Yes Take by Univers no.95/brunilda 3-31 mouth. ity of us 14:16: [place] fum/folic 37 Medical ac Branch ( ORAL) PNV 2021-0 Yes Take by Univers no.95/brunilda 3-31 mouth. ity of us 14:16: [place] fum/folic 37 Medical ac Branch ( ORAL) Immunizations Ordered Filled Immunization Date Status Comments [facility] e Immunization Name Name Influenza Virus 2022-01-17 Completed [facility], 00:00:00 [place] [facility] Preserv and ABX Branch Free 6 MO-64 YRS Influenza Virus 2022-01-17 Completed [facility]it [facility] of [facility], 00:00:00 [place] Me dical Preserv and ABX Branch Free 6 MO-64 YRS Influenza Virus 2022-01-17 Completed [facility]it [facility] of [facility], 00:00:00 [place] Me dical Preserv and ABX Branch Free 6 MO-64 YRS Influenza Virus 2022-01-17 Completed [facility]it [facility] of [facility], 00:00:00 [place] Me dical Preserv and ABX Branch Free 6 MO-64 YRS Influenza Virus 2022-01-17 Completed [facility] of [facility], 00:00:00 [place] Me dical Preserv and ABX Branch Free 6 MO-64 YRS Influenza Virus 2022-01-17 Completed [facility]it [facility] of [facility], 00:00:00 [place] Me dical Preserv and ABX Branch Free 6 MO-64 YRS Influenza Virus 2022-01-17 Completed [facility]it [facility] of [facility], 00:00:00 [place] Me dical Preserv and ABX Branch Free 6 MO-64 YRS Influenza Virus 2022-01-17 Completed [facility]it [facility] of [facility], 00:00:00 [place] Me dical Preserv and ABX Branch Free 6 MO-64 YRS Influenza Virus 2022-01-17 Completed [facility]it [facility] of [facility], 00:00:00 [place] Me dical Preserv and ABX Branch Free 6 MO-64 YRS Influenza Virus 2022-01-17 Completed Universit y of [facility], 00:00:00 [place] Me dical Preserv and ABX Branch Free 6 MO-64 YRS Influenza Virus 2022-01-17 Completed Universit y of [facility], 00:00:00 [place] Me dical Preserv and ABX Branch Free 6 MO-64 YRS Influenza Virus 2022-01-17 Completed Universit y of Vacc[facility], 00:00:00 [place] Me [facility]ical Preserv and ABX Branch Free 6 MO-64 YRS TDAP 2021-12-06 Completed University of 00:00:00 [facility] TDAP 2021-12-06 Completed University of 00:00:00 [facility] TDAP 2021-12-06 Completed University of 00:00:00 [facility] TDAP 2021-12-06 Completed University of 00:00:00 [facility] TDAP 2021-12-06 Completed University of 00:00:00 [facility] TDAP 2021-12-06 Completed University of 00:00:00 [facility] TDAP 2021-12-06 Completed University of 00:00:00 [facility] TDAP 2021-12-06 Completed University of 00:00:00 [facility] TDAP 2021-12-06 Completed University of 00:00:00 [facility] TDAP 2021-12-06 Completed University of 00:00:00 [facility] TDAP 2021-12-06 Completed University of 00:00:00 [facility] TDAP 2021-12-06 Completed University of 00:00:00 [facility] TDAP 2021-12-06 Completed University of 00:00:00 [facility] TDAP 2021-12-06 Completed University of 00:00:00 [facility] TDAP 2021-12-06 Completed University of 00:00:00 [facility] TDAP 2021-12-06 Completed University of 00:00:00 [facility] TDAP 2021-12-06 Completed University of 00:00:00 [facility] TDAP 2021-12-06 Completed University of 00:00:00 [facility] Vital Signs Vital Name Observation Time Observation Value Comments Source Systolic blood 2022-04-01 21:17:00 108 mm[Hg] Univer sity of pressure [place] [facility] Diastolic blood 2022-04-01 21:17:00 68 mm[Hg] Unive rsity of pressure [place] [facility] Heart rate 2022-04-01 21:17:00 81 /min [facility] [place] [facility] Body temperature 2022-04-01 21:17:00 36.78 [facility] [place] [facility] Respiratory rate 2022-04-01 21:17:00 18 /min Univ ers[facility] [place] [facility] Body height 2022-04-01 21:17:00 160 cm [facility] [place] [facility] Body weight 2022-04-01 21:17:00 62.143 kg [facility] [place] [facility] BMI 2022-04-01 21:17:00 24.27 kg/m2 [facility] [place] [facility] Systolic blood 2022-03-28 19:40:00 114 mm[Hg] Univer sity of pressure [place] [facility] Diastolic blood 2022-03-28 19:40:00 70 mm[Hg] Unive rsity of pressure [place] [facility] Heart rate 2022-03-28 19:40:00 87 /min [facility] [place] [facility] Body temperature 2022-03-28 19:40:00 37.11 [facility] [place] [facility] Respiratory rate 2022-03-28 19:40:00 18 /min Univ ersity of [place] [facility] Body height 2022-03-28 19:40:00 160 cm [facility] [place] [facility] Body weight 2022-03-28 19:40:00 63.05 kg [facility] [place] [facility] BMI 2022-03-28 19:40:00 24.62 kg/m2 [facility] [place] [facility] Systolic blood 2022-02-22 20:35:00 101 mm[Hg] Univer sity of pressure [place] [facility] Diastolic blood 2022-02-22 20:35:00 67 mm[Hg] Unive rsity of pressure [place] [facility] Heart rate 2022-02-22 20:35:00 85 /min [facility] [place] [facility] Body temperature 2022-02-22 20:35:00 36.89 [facility] [place] [facility] Respiratory rate 2022-02-22 20:35:00 18 /min [facility] [place] [facility] Body height 2022-02-22 20:35:00 160 cm [facility] [place] [facility] Body weight 2022-02-22 20:35:00 60.328 kg [facility] [place] [facility] BMI 2022-02-22 20:35:00 23.56 kg/m2 [facility] [place] [facility] Systolic blood 2022-02-08 17:00:00 97 mm[Hg] Univer sity of pressure [place] [facility] Diastolic blood 2022-02-08 17:00:00 60 mm[Hg] Unive rsity of pressure [place] [facility] Heart rate 2022-02-08 17:00:00 91 /min [facility] [place] [facility] Body temperature 2022-02-08 17:00:00 36.94 [facility] [place] [facility] Respiratory rate 2022-02-08 17:00:00 18 /min [facility] [place] [facility] Oxygen saturation in 2022-02-08 17:00:00 100 /min University of Arterial blood by [place] [facility] Pulse oximetry Branch Body weight 2022-02-07 03:44:00 69.854 kg [facility] [place] [facility] BMI 2022-02-07 03:44:00 27.28 kg/m2 [facility] [place] [facility] Heart rate 2022-02-06 22:30:00 82 /min [facility] [place] [facility] Respiratory rate 2022-02-06 22:30:00 18 /min Univ ersity of [place] [facility] Oxygen saturation in 2022-02-06 22:30:00 100 /min University of Arterial blood by [place] [facility] Pulse oximetry Branch Systolic blood 2022-02-06 19:45:00 107 mm[Hg] Univer sity of pressure [place] [facility] Diastolic blood 2022-02-06 19:45:00 66 mm[Hg] Unive rsity of pressure [place] [facility] Body temperature 2022-02-06 17:30:00 36.67 [facility] [place] [facility] Systolic blood 2022-01-30 18:20:00 105 mm[Hg] Univer sity of pressure [place] [facility] Diastolic blood 2022-01-30 18:20:00 70 mm[Hg] Unive rsity of pressure [place] [facility] Heart rate 2022-01-30 18:20:00 83 /min [facility] [place] [facility] Body temperature 2022-01-30 18:20:00 36.72 [facility] [place] [facility] Respiratory rate 2022-01-30 18:20:00 18 /min [facility] [place] [facility] Body height 2022-01-30 18:20:00 160 cm [facility] [place] [facility] Body weight 2022-01-30 18:20:00 69.854 kg [facility] [place] [facility] BMI 2022-01-30 18:20:00 27.28 kg/m2 [facility] [place] [facility] Systolic blood 2022-01-23 18:27:00 115 mm[Hg] Univer sity of pressure [place] [facility] Diastolic blood 2022-01-23 18:27:00 72 mm[Hg] Unive rsity of pressure [place] [facility] Heart rate 2022-01-23 18:27:00 96 /min [facility] [place] [facility] Body temperature 2022-01-23 18:27:00 36.5 [facility] [place] [facility] Respiratory rate 2022-01-23 18:27:00 18 /min [facility] [place] [facility] Body height 2022-01-23 18:27:00 160 cm [facility] [place] [facility] Body weight 2022-01-23 18:27:00 69.945 kg [facility] [place] [facility] BMI 2022-01-23 18:27:00 27.32 kg/m2 [facility] [place] [facility] Systolic blood 2022-01-17 19:41:00 113 mm[Hg] Univer sity of pressure [place] [facility] Diastolic blood 2022-01-17 19:41:00 71 mm[Hg] Unive rsity of pressure [place] [facility] Heart rate 2022-01-17 19:41:00 105 /min [facility] [place] [facility] Body temperature 2022-01-17 19:41:00 36.78 [facility] [place] [facility] Respiratory rate 2022-01-17 19:41:00 17 /min [facility] [place] [facility] Body height 2022-01-17 19:41:00 160 cm [facility] [place] [facility] Body weight 2022-01-17 19:41:00 68.13 kg [facility] [place] [facility] BMI 2022-01-17 19:41:00 26.61 kg/m2 [facility] [place] [facility] Systolic blood 2022-01-11 20:10:00 110 mm[Hg] Univer sity of pressure [place] [facility] Diastolic blood 2022-01-11 20:10:00 71 mm[Hg] Unive rsity of pressure [place] [facility] Heart rate 2022-01-11 20:10:00 103 /min [facility] [place] [facility] Body temperature 2022-01-11 20:10:00 36.94 [facility] [place] [facility] Respiratory rate 2022-01-11 20:10:00 18 /min [facility] [place] [facility] Body height 2022-01-11 20:10:00 160 cm [facility] [place] [facility] Body weight 2022-01-11 20:10:00 67.586 kg [facility] [place] [facility] BMI 2022-01-11 20:10:00 26.39 kg/m2 [facility] [place] [facility] Systolic blood 2022-01-04 19:27:00 105 mm[Hg] Univer sity of pressure [place] [facility] Diastolic blood 2022-01-04 19:27:00 65 mm[Hg] Unive rsity of pressure [place] [facility] Heart rate 2022-01-04 19:27:00 86 /min [facility] [place] [facility] Body temperature 2022-01-04 19:27:00 37.06 [facility] [place] [facility] Body height 2022-01-04 19:27:00 160 cm [facility] [place] [facility] Body weight 2022-01-04 19:27:00 66.361 kg [facility] [place] [facility] BMI 2022-01-04 19:27:00 25.92 kg/m2 [facility] [place] [facility] Systolic blood 2021-12-19 19:01:00 99 mm[Hg] Univer sity of pressure [place] [facility] Diastolic blood 2021-12-19 19:01:00 62 mm[Hg] Unive rsity of pressure [place] [facility] Heart rate 2021-12-19 19:01:00 85 /min [facility] [place] [facility] Body temperature 2021-12-19 19:01:00 36.78 [facility] [place] [facility] Respiratory rate 2021-12-19 19:01:00 18 /min [facility] [place] [facility] Body height 2021-12-19 19:01:00 160 cm [facility] [place] [facility] Body weight 2021-12-19 19:01:00 65.318 kg [facility] [place] [facility] BMI 2021-12-19 19:01:00 25.51 kg/m2 [facility] [place] [facility] Systolic blood 2021-12-06 21:43:00 105 mm[Hg] Univer sity of pressure [place] [facility] Diastolic blood 2021-12-06 21:43:00 66 mm[Hg] Unive rsity of pressure [place] [facility] Heart rate 2021-12-06 21:43:00 82 /min [facility] [place] [facility] Body temperature 2021-12-06 21:43:00 36.89 [facility] [place] [facility] Body height 2021-12-06 21:43:00 160 cm [facility] [place] [facility] Body weight 2021-12-06 21:43:00 63.866 kg [facility] [place] [facility] BMI 2021-12-06 21:43:00 24.94 kg/m2 [facility] [place] [facility] Systolic blood 2021-11-22 21:11:00 99 mm[Hg] Univer sity of pressure [place] [facility] Diastolic blood 2021-11-22 21:11:00 60 mm[Hg] Unive rsity of pressure [place] [facility] Heart rate 2021-11-22 21:11:00 90 /min [facility] Body temperature 2021-11-22 21:11:00 36.83 [facility] Respiratory rate 2021-11-22 21:11:00 18 /min [facility] Body height 2021-11-22 21:11:00 160 cm [facility] Body weight 2021-11-22 21:11:00 62.869 kg [facility] BMI 2021-11-22 21:11:00 24.55 kg/m2 [facility] Systolic blood 2021-11-01 21:18:00 104 mm[Hg] [facility] Diastolic blood 2021-11-01 21:18:00 64 mm[Hg] [facility] Heart rate 2021-11-01 21:18:00 55 /min [facility] Body temperature 2021-11-01 21:18:00 37.06 [facility] Body height 2021-11-01 21:18:00 160 cm [facility] Body weight 2021-11-01 21:18:00 61.78 kg [facility] BMI 2021-11-01 21:18:00 24.13 kg/m2 [facility] Systolic blood 2021-10-03 16:35:00 102 mm[Hg] [facility] Diastolic blood 2021-10-03 16:35:00 65 mm[Hg] [facility] rate 2021-10-03 16:35:00 86 /min [facility] Body temperature 2021-10-03 16:35:00 36.89 [facility] Body height 2021-10-03 16:35:00 160 cm [facility] Body weight 2021-10-03 16:35:00 59.603 kg [facility] BMI 2021-10-03 16:35:00 23.28 kg/m2 [facility] Procedures Procedure Date / Time Performing Clinician Source Performed CONSENT FOR 2022-04-01 06:01:00 Doctor Unassigned, No [facility] CONTRACEPTION Name [facility] POCT TEST 2022-04-01 00:00:00 Gabriella Caro [facility] CBC WITH DIFF 2022-02-07 10:44:00 Luis janeth [facility] CBC WITH DIFF 2022-02-07 10:44:00 Luis janeth [facility] VENOUS CORD GAS 2022-02-07 04:32:00 Tika Coto [facility] VENOUS CORD GAS 2022-02-07 04:32:00 Tika Coto [facility] SECTION 2022-02-07 03:29:00 Lorne [facility] SECTION 2022-02-07 03:29:00 Lorne [facility] CBC WITH DIFF 2022-02-06 17:38:00 Tika Coto [facility] HEPATITIS B SURFACE 2022-02-06 17:38:00 Tika Coto [facility] ANTIGEN [facility] HIV 1/2 AG-AB WITH 2022-02-06 17:38:00 Tika Coto [facility] REFLEX [facility] GALV ONLY - SYPHILIS 2022-02-06 17:38:00 Tika Coto [facility] IGG/IGM [facility] CBC WITH DIFF 2022-02-06 17:38:00 Tika Coto [facility] HEPATITIS B SURFACE 2022-02-06 17:38:00 Tika Coto [facility] ANTIGEN [facility] HIV 1/2 AG-AB WITH 2022-02-06 17:38:00 Tika Coto [facility] REFLEX [facility] GALV ONLY - SYPHILIS 2022-02-06 17:38:00 Tika Coto [facility] IGG/IGM [facility] HB ABO GROUPING 2022-02-06 16:53:00 Tika Coto [facility] RHO (D) IMMUNE GLOBULIN 2022-02-06 16:53:00 Jenusaitis [facility] HB ABO GROUPING 2022-02-06 16:53:00 Tika Coto [facility] RHO (D) IMMUNE GLOBULIN 2022-02-06 16:53:00 JenEstephanie chakrabortyke [facility] POCT URINALYSIS W/O 2022-01-30 18:24:00 Gabriella Caro [facility] POCT URINALYSIS W/O 2022-01-23 00:00:00 Jose Aguillon [facility] NON-STRESS TEST 2022-01-17 20:30:06 Gabriella Caro [facility] FLU VACC (), 6 2022-01-17 19:58:30 Gabriella Caro [facility] MO-64 YRS, .5ML, IM, Medical [facility] QUAD (FLUCELVAX) POCT URINALYSIS W/O 2022-01-17 19:44:00 Gabriella Caro [facility] SPECIFIC GRAVITY Medical Branch >14 WEEKS US 2022-01-11 20:52:46 Jose Aguillon [facility] DSU PRE-OP 2022-01-11 05:01:00 Doctor Unassigned, No Ophelia [facility] Medical Branch POCT URINALYSIS W/O 2022-01-11 00:00:00 Jose Aguillon [facility] SPECIFIC GRAVITY Medical Branch POCT URINALYSIS W/O 2022-01-04 00:00:00 Jose Aguillon [facility] SPECIFIC JARRATT Medical Branch POCT URINALYSIS W/O 2021-12-19 19:01:00 Gabriella Caro [facility] SPECIFIC GRAVITY Medical [place] TDAP VACCINE, >11 YRS, 2021-12-06 22:07:24 Jose Aguillon [facility] POCT URINALYSIS W/O 2021-12-06 00:00:00 Jose Aguillon [facility] SPECIFIC JARRATT Medical [place] 3 HR GLUCOSE TOLERANCE 2021-12-05 17:03:00 Gabriella Caro [facility] Medical [place] 2 HR GLUCOSE TOLERANCE 2021-12-05 16:07:00 Gabriella Caro [facility] [place] GLUCOSE FASTING 2021-12-05 14:01:00 Gabriella Caro [facility] 3 HR GLUCOSE TOLERANCE 2021-12-05 14:01:00 Gabriella Caro [facility] POCT URINALYSIS W/O 2021-11-22 00:00:00 Gabriella Caro [facility] SPECIFIC JARRATT Medical [place] POCT URINALYSIS W/O 2021-11-01 00:00:00 Gabriella Caro [facility] SPECIFIC GRAVITY Medical [place] EXTERNAL PROVIDER 2021-10-10 05:01:00 Doctor Unassigned, No [facility] Medical Branch AUTHORIZATION TO RELEASE 2021-10-03 05:01:00 Doctor Unassigned, No [facility] TO [facility] Medical Branch POCT URINALYSIS W/O 2021-10-03 00:00:00 [facility] Encoun[facility] Start End Encounter Admission Attending Care Care Encounter Source Date/Time Date/Time Type Type Clinicians Facility Department ID 2022-09-05 2022-09-05 Outpatient R SALCASSANDRA OLIVERASOL [facility] U [facility] [id number] Univers 16:45:00 16:45:00 KANA KATELYNN [facility] 2022-09-02 2022-09-02 [facility] [id number] Univers 16:30:00 16:30:00 KINCAIDAUGUSTIN KATELYNN [facility] 2022-07-10 2022-07-10 Outpatient R VANIA [facility] [id number] Univers 15:00:00 15:00:00 [facility] 2022-06-24 2022-06-24 Outpatient R [facility] [id number] Univers 14:30:00 14:30:00 [facility] 2022-04-25 2022-04-25 Out[facility] [id number] Univers 13:00:00 13:00:00 [facility] 2022-04-12 2022-04-12 Outpatient R [facility] [id number] Univers 15:00:00 15:00:00 [facility] 2022-04-01 2022-04-01 Nurse Nurse, [facility] 1.2.840.114 [id number] Univers 14:30:00 15:24:59 Visit [facility] 4.2.7.2.686 Elizabeth [place] [id number] [address] 2022-04-01 2022-04-01 Outpatient R JOSE AGUILLON [facility] [id number] Univers 14:30:00 14:30:00 [facility] 2022-04-01 2022-04-01 Orders Doctor [place] 1.2.840.114 [id number] Univers 00:00:00 00:00:00 Only Unassigned, JESENIA 350.1.13.10 ity of [place] [facility] 4.2.7.2.686 Sean as [id number] [address] 2022-03-28 2022-03-28 Outpatient Sheila CARO [facility] [id number] Univers 13:30:00 14:21:47 [facility] 2022-03-28 2022-03-28 [facility] 1.2.611.767 [id number] Univers 13:30:00 14:21:47 Gabriella WOLF 350.1.13.10 ity of [place] [id number] [address] 2022-03-15 2022-03-15 Outpatient Sheila [facility]LLON [facility] [id number] Univers 11:00:00 11:00:00 ity [facility] 2022-02-28 2022-02-28 Outpatient Sheila AGUILLON [facility] [id number] Univers 16:15:00 16:15:00 ity [facility] 2022-02-22 2022-02-22 Outpatient Sheila [facility]UILLON [facility] [id number] Univers 14:30:00 14:56:17 ity [facility] 2022-02-22 2022-02-22 [facility] 1.2.840.114 [id number] Univers 14:30:00 14:56:17 Jose JOHNSON 350.1.13.10 i ty of [facility] [place] [id number] [address] 2022-02-22 2022-02-22 Outpatient Sheila AGUILLON [facility] [id number] Univers 14:30:00 14:30:00 ity [facility] 2022-02-15 2022-02-15 Outpatient Sehila [facility]LLON [facility] [id number] Univers 11:45:00 11:45:00 ity [facility] 2022-02-06 2022-02-08 Inpatient LUCIO ORTIZEETA [facility] MISAEL [id number] Univers 11:31:00 14:03:00 KT VELÁSQUEZ ity [facility] 2022-02-06 2022-02-08 [facility] Steve Vivas 1 .2.840.114 [id number] Univers 11:31:00 14:03:00 Encounter Kt Velásquez 350.1.13.10 ity of [facility] 4.2.7.2.686 Sean as [id number] [facility] 134 Branch 2022-02-07 2022-02-07 Anesthesia CJ Bailey 1.2.840.114 [id number] Univers 20:03:26 20:03:26 Event Mirella JESENIA 350.1.13.10 it y [facility] 4.2.7.2.686 Sean as [phone] [facility] 140 Branch 2022-02-06 2022-02-06 Surgery LorneCJ krishnan 1.2.840.114 [id number] Univers 15:55:00 17:40:00 Christopher Jacobs JESENIA 350.1.13.10 ity [facility] 4.2.7.2.686 Sean as [phone] [facility] 013 Branch 2022-02-06 2022-02-06 Outpatient R JOSE AGUILLON [facility] [id number] Univers 13:30:00 13:30:00 ity [facility] 2022-02-06 2022-02-06 Telephone Jose Aguillon [facility] 1.2.840.114 [id number] Univers 00:00:00 00:00:00 Jose WOLF 350.1.13.10 i ty [facility] [place] [id number] [facility] 2022-01-30 2022-01-30 Outpatient R VANIA [facility] [id number] Univers 14:00:00 14:00:00 GABRIELLA rodriguez [facility] 2022-01-30 2022-01-30 Routine Vania MOGIO 1.2.255.847 [id number] Univers 13:15:00 13:30:00 Gabriella WOLF 350.1.13.10 ity of [place] [id number] [address] 2022-01-23 2022-01-23 Outpatient R JOSE AGUILLON [facility] [id number] Univers 13:30:00 13:48:29 ity of [facility] 2022-01-23 2022-01-23 Routine Jose Aguillon [facility] 1.2.773.563 [id number] Univers 13:30:00 13:48:29 Jose WOLF 350.1.13.10 ity of Visit [place] [id number] [address] 2022-01-21 2022-01-21 Seo Marketing Specialist [facility]trasound, [facility] 1.2 .840.114 [id number] Univers 15:30:00 16:00:00 Visit Steve Vivas ACCOUNT DEVELOPMENT ASSOCIATE 350.1. 13.10 ity of [facility] 4.2.7.2.686 Sean as MATERNAL [phone] Med ical & CHILD [address] [place] [address] 2022-01-21 2022-01-21 Outpatient P VANESSA [facility] [id number] Univers 15:30:00 15:30:00 RO it y of [place] [facility] 2022-01-17 2022-01-17 Routine Vania [facility] 1.2.346.827 [id number] Univers 14:15:00 14:30:00 Gabriella [facility]MISHA 350.1.13.10 ity of Visit [place] [id number] [address] 2022-01-17 2022-01-17 Outpatient R VANIA [facility] [id number] Univers 14:15:00 14:15:00 GABRIELLA ity [facility] 2022-01-11 2022-01-11 Outpatient R JOSE AGUILLON [facility] [id number] Univers 14:45:00 16:09:39 ity [facility] 2022-01-11 2022-01-11 Routine Jose Aguillon [facility] 1.2.840.114 [id number] Univers 14:45:00 16:09:39 Jose JOHNSON 350.1.13.10 i ty of [place] [facility] [place] [id number] [address] 2022-01-11 2022-01-11 Orders Doctor CJ 1.2.840.114 [id number] Univers 00:00:00 00:00:00 Only Unassigned, JESENIA 350.1.13.10 ity of [place] [facility] 4.2.7.2.686 Sean as [id number] [address] 2022-01-04 2022-01-04 Outpatient R JOSE AGUILLON [facility] [id number] Univers 14:30:00 14:46:16 ity of [facility] 2022-01-04 2022-01-04 Routine Jose Aguillon [facility] 1.2.840.114 [id number] Univers 14:30:00 14:46:16 Jose JOHNSON 350.1.13.10 i ty of [place] [facility] [place] [id number] [address] 2021-12-19 2021-12-19 Routine Vania [facility] 1.2.656.381 [id number] Univers 13:30:00 13:45:00 Gabriella WOLF 350.1.13.10 ity of Visit [place] [id number] Ut dic[address] 2021-12-19 2021-12-19 Outpatient R VANIA [facility] [id number] Univers 13:30:00 13:30:00 GABRIELLA itkaren [facility] 2021-12-06 2021-12-06 Outpatient R JOSE AGUILLON [facility] [id number] Univers 16:15:00 17:13:41 ity of [facility] 2021-12-06 2021-12-06 Routine Jose Aguillon [facility] 1.2.626.538 [id number] Univers 16:15:00 17:13:41 Jose WOLF 350.1.13.10 ity of Visit [place] [id number] Ut dical NAL [address] [facility] 2021-12-05 2021-12-05 Seo Marketing Specialist Leatha, Adc Lab Main [facility] 1.2.8 40.114 [id number] Univers 09:15:00 09:30:00 Visit Jose Aguillon 350.1.13.10 ity of [place] [id number] [facility] 2021-12-05 2021-12-05 Outpatient R JOSE AGUILLON [facility] [id number] Univers 09:15:00 09:15:00 ity [facility] 2021-11-27 2021-11-27 Outpatient R [facility] [id number] Univers 08:30:00 08:30:00 ity [facility] 2021-11-22 2021-11-22 Routine [facility] 1.2.865.826 [id number] Univers 16:00:00 16:15:00 Gabriella WOLF 350.1.13.10 ity of [place] [id number] [address] 2021-11-22 2021-11-22 Outpatient [facility] [id number] Univers 16:00:00 16:00:00 GABRIELLA ity [facility] 2021-11-22 2021-11-22 Letter [facility] 1.2.911.156 [id number] Univers 00:00:00 00:00:00 (Out) Gabriella WOLF 350.1.13.10 i ty of [place] [id number] Ut dical NAL [facility] 2021-11-19 2021-11-19 Seo Marketing Specialist Leatha, Adc Lab Main [facility] 1.2.8 40.114 [id number] Univers 11:45:00 12:00:00 Visit Gabriella Caro 350.1.13.10 ity of [place] [id number] [facility] 2021-11-19 2021-11-19 Outpatient R VANIA [facility] [id number] Univers 11:45:00 11:45:00 GABRIELLA rodriguez [facility] 2021-11-19 2021-11-19 Outpatient R JOSE AGUILLON [facility] [id number] Univers 11:15:00 11:15:00 ity of [facility] 2021-11-19 2021-11-19 Case Vania [facility] 1.2.673.727 [id number] Univers 00:00:00 00:00:00 Management Gabriella WOLF 350.1.13.10 ity of [place] [id number] Ut dic[address] 2021-11-02 2021-11-02 Seo Marketing Specialist Ultrasound, Raymundo[facility] 1.2 .840.114 [id number] Univers 15:30:00 16:00:57 Visit Brie Grewal ACCOUNT DEVELOPMENT ASSOCIATE 350.1.13.10 ity of [facility] 4.2.7.2.686 Sean as MATERNAL [id number] [facility] ical & CHILD [address] [place] [address] 2021-11-02 2021-11-02 Outpatient P DANIELLE [facility] [id number] Univers 15:30:00 15:30:00 BRIE ity [facility] 2021-11-01 2021-11-01 Outpatient R VANIA [facility] [id number] Univers 15:45:00 16:28:51 GABRIELLA rodriguez [facility] 2021-11-01 2021-11-01 Routine Vania [facility] 1.2.963.992 [id number] Univers 15:45:00 16:28:51 Gabriella WOLF 350.1.13.10 ity of Visit [place] [id number] [facility] 2021-10-31 2021-10-31 Outpatient R JOSE AGUILLON [facility] [id number] Univers 11:15:00 11:15:00 ity of [facility] 2021-10-31 2021-10-31 Outpatient R JOSE AGUILLON [facility] [id number] Univers 11:15:00 11:15:00 ity of [facility] 2021-10-31 2021-10-31 Telephone Jose Aguillon [facility] 1.2.840.114 [id number] Univers 00:00:00 00:00:00 Jose WOLF 350.1.13.10 i ty of [place] [id number] Ut dic[address] 2021-10-10 2021-10-10 Orders Doctor CJ 1.2.840.114 [id number] Univers 00:00:00 00:00:00 Only Unassigned, JESENIA 350.1.13.10 ity of [place] [facility] 4.2.7.2.686 Sean as [id number] [address] 2021-10-03 2021-10-03 Routine [facility] 1.2.731.448 [id number] Univers 11:15:00 11:58:01 Gabriella WOLF 350.1.13.10 ity of [place] [id number] Ut dic[address] 2021-10-03 2021-10-03 Outpatient R VANIA [facility] [id number] Univers 11:15:00 11:58:01 GABRIELLA itkaren [facility] 2021-10-03 2021-10-03 Outpatient R VANIA [facility] [id number] Univers 11:15:00 11:15:00 GABRIELLA rodriguez [facility] 2021-10-03 2021-10-03 Telephone [facility] 1.2.840.114 [id number] Univers 00:00:00 00:00:00 Gabriella WOLF 350.1.13.10 i ty of [place] [id number] [facility] 2021-10-03 2021-10-03 Orders Doctor CJ 1.2.840.114 [id number] Univers 00:00:00 00:00:00 Only Unassigned, JESENIA 350.1.13.10 ity of [place] [facility] 4.2.7.2.686 Sean as [id number] [address] 2021-10-02 2021-10-02 Seo Marketing Specialist 2, Adc Lab [facility] 1.2.840.114 [id number] Univers 10:15:00 10:30:00 Visit HennaJose Jose WOLF 350.1.13.10 ity of [place] [id number] [facility] [address] [facility] 2021-10-02 2021-10-02 Outpatient R AGUILLON JOSE [facility] [id number] Univers 10:15:00 10:15:00 ity of [facility] 2021-10-02 2021-10-02 Case Vania [facility] 1.2.521.618 [id number] Univers 00:00:00 00:00:00 Management Gabriella WOLF 350.1.13.10 ity of [place] [id number] [address] 2021-09-28 2021-09-28 Outpatient [facility] [id number] Univers 10:30:00 10:30:00 DEMAR [facility] 2021-09-28 2021-09-28 Outpatient [facility] [id number] Univers 10:30:00 10:30:00 DEMAR [facility] 2021-09-28 2021-09-28 Telephone Vania [facility] 1.2.840.114 [id number] Univers 00:00:00 00:00:00 Gabriella WOLF 350.1.13.10 i ty of [facility] [place].2.[place] [id number] [facility] [address] [facility] 2021-09-27 2021-09-27 Seo Marketing Specialist Ultrasound, Raymundo-[facility] 1.2 .840.114 [id number] Univers 14:00:00 14:37:48 Visit Brie Grewal ACCOUNT DEVELOPMENT ASSOCIATE 350.1.13.10 ity of [facility] 4.2.7.2.686 Sean as MATERNAL [id number] [facility] ical & CHILD [address] [place] [address] 2021-09-27 2021-09-27 Outpatient P DANIELLE [facility] [id number] Univers 14:00:00 14:00:00 BRIE ity [facility] 2021-09-07 2021-09-07 Outpatient R [facility] [id number] Univers 11:00:00 11:00:00 ity [facility] 2021-09-05 2021-09-05 Case Vania [facility] 1.2.960.540 [id number] Univers 00:00:00 00:00:00 Management Gabriella WOLF 350.1.13.10 ity [facility] [place] [id number] [address] 2021-09-04 2021-09-04 Routine Jose Aguillon [facility] 1.2.186.392 [id number] Univers 16:00:00 16:00:00 Cam LUCIANO 350.1.13.10 ity of Visit [place] [id number] Ut dic[address] 2021-09-04 2021-09-04 Outpatient R JOSE AGUILLON [facility] [id number] Univers 16:00:00 15:47:45 ity [facility] 2021-08-17 2021-08-17 Telephone Jose Aguillon [facility] 1.2.840.114 [id number] Univers 00:00:00 00:00:00 Jose WOLF 350.1.13.10 i ty of [facility] 4.2.7.2.[place] [id number] Ut dical [address] 2021-08-14 2021-08-14 Telephone Jose Aguillon [facility] 1.2.840.114 [id number] Univers 00:00:00 00:00:00 Cam [place] 350.1.13.10 i ty of [facility] 4.2.7.2.[place] [id number] [address] 2021-08-14 2021-08-14 Telephone Jose Aguillon [facility] 1.2.840.114 [id number] Univers 00:00:00 00:00:00 Cam [place] 350.1.13.10 i ty of [facility] 4.2.7.2.[place] [id number] [address] 2021-08-09 2021-08-09 Out[facility] [id number] Univers 14:30:00 15:16:27 [facility] 2021-08-09 2021-08-09 [facility] 1.2.546.134 [id number] Univers 14:30:00 15:16:27 Gabriella WOLF 350.1.13.10 ity of Visit [place] [id number] [address] 2021-08-09 2021-08-09 Outpatient [facility] [id number] Univers 14:30:00 14:30:00 [facility] 2021-08-09 2021-08-09 Telephone Henna [facility] 1.2.840.114 [id number] Univers 00:00:00 00:00:00 Cam [place] 350.1.13.10 i ty of [place] [id number] [address] 2021-08-05 2021-08-05 Emergency X [facility] ERT [id number] Univers 20:39:00 22:07:00 MICHELL ity of [facility] 2021-08-05 2021-08-05 Emergency [facility] [id number] Univers 20:39:00 22:07:00 Michell R [place] [id number] i ty [place] [phone] [facility] [address] 2021-08-01 2021-08-01 Seo Marketing Specialist 2, Adc Lab [facility] [id number] Univers 08:45:00 09:00:00 Visit Unknown, Attending LUCIANO [id number] 0 ity of [facility] [id number] [place] PROFESSIO [phone] Ut dical [facility] 2021-08-01 2021-08-01 Outpatient R HENNA JOSE [facility] [id number] Univers 08:45:00 08:45:00 ity of [facility] 2021-08-01 2021-08-01 Orders Doctor CJ [id number] Univers 00:00:00 00:00:00 Only Unassigned, JESENIA [id number] ity of [facility] 4.2.7.2.686 Sean as [phone] [facility] [address] 2021-07-17 2021-07-17 Telephone AguillonKianaen [facility] [id number] Univers 00:00:00 00:00:00 Joes WOL[place] [id number] i ty [id number] [phone] Ut dical [place] [address] [facility] 2021-07-13 2021-07-13 Case Jose Aguillon [facility] [id number] Univers 00:00:00 00:00:00 Management Cam ALEX [id number] ity of [id number] [id number] [facility] [address] 2021-07-12 2021-07-12 Initial AguillonJose [facility] [id number] Univers 14:00:00 14:53:20 Cam LUCIANO [id number] ity of [place] [id number] Ut dical [facility] 2021-07-12 2021-07-12 Outpatient R JOSE AGUILLON [facility] [id number] [facility] 14:00[facility]00 [facility]53:[facility] 2021-07-12 Outpatient JOSE BOYER [facility] [id number] [facility] 14:00:00 14:53:20 [facility]18 2019-11-18 Outpatient COH COH PDPFEIZ YQJ COH 00:00:00 00:00:00 [facility]-[id number] Results Test Description Test Time Test Comments Results Result Comments Source POCT TEST 2022-04-01 21:20:00 Test Item Value Reference Range Interpretation Comme nts POCT PREG (test code = 1605) Negative On board controls acceptable with C Line (test code = 3574) Yes POCT PREG LOT # (test code = 3575) POCT PREG TEST DATE (test code = 3576) [facility] ONLY - SYPHILIS [id number] 15:00:02 Test Item Value Reference Range Interpretation Comments Syphilis IgG/IgM (test Non-reactive Non-reactive code = 69806-2) JONATAN (test code = JONATAN) Non-reactive - No serologic evidence of T. pallidum infection. Cannot exclude incubating or early syphilis. Submit a second specimen in 2-4 weeks if syphilis is clinically suspected. Equivocal - Further testing to follow. Reactive - Further testing to follow. Lab Interpretation (test Normal code = 30465-0) [facility] ONLY - SYPHILIS [id number] 15:00:02 Test Item Value Reference Range Interpretation Comments Syphilis IgG/IgM (test Non-reactive Non-reactive code = 59005-6) JONATAN (test code = JONATAN) Non-reactive - No serologic evidence of T. pallidum infection. Cannot exclude incubating or early syphilis. Submit a second specimen in 2-4 weeks if syphilis is clinically suspected. Equivocal - Further testing to follow. Reactive - Further testing to follow. Lab Interpretation (test Normal code = 71007-8) [facility] IMMUNE [id number] 08:21:09 Test Item Value Reference Range Interpretation Comments RHIG CANDIDATE? No- see comment Patient i s not a (test code = candidate for R [facility]- 5055) Patient is Rh Positive.Perfor med at [facility] Laboratory Services - [facility] Blood [address] [place] [address]Wvis Free: [phone] A No. [id number] [facility] IMMUNE [id number] 08:21:09 Test Item Value Reference Range Interpretation Comments RHIG CANDIDATE? No- see comment Patient i s not a (test code = candidate for R hIg- 5055) Patient is Rh Positive.Perfor med at [facility] Laboratory Services - [facility] Blood [address] [place] [address]Driu Free: [phone] A No. [id number] [facility] Cord [id number] 04:39:21 Test Item Value Reference Range Interpretation Comments VENOUS BASE EXCESS, mEq/L CORD (test code = 7796240157) VENOUS PH, CORD (test 7.25-7.45 code = 2631270447) VENOUS PC02, CORD See_Comment [Automate d message] The (test code = system which ge nerated 1249369319) this result tra nsmitted reference range : 27 - 49 mmHg. The refer ence range was not used to interpret this result as normal/abnormal . VENOUS PO2, CORD (test See_Comment [Aut omated message] The code = 2286758076) system [facility] generated this result tra nsmitted reference range : 17 - 41 mmHg. The refer ence range was not used to interpret this result as normal/abnormal . VENOUS BICARBONATE, See_Comment [Automa severiano message] The CORD (test code = system i ch generated 1467181755) this result tra nsmitted reference range : 12 - 29 mEq/L. The refe rence range was not used to interpret this result as normal/abnormal . [facility] Cord [id number] 04:39:21 Test Item Value Reference Range Interpretation Comments VENOUS BASE EXCESS, mEq/L CORD (test code = 1641506526) VENOUS PH, CORD (test 7.25-7.45 code = 5816090357) VENOUS PC02, CORD See_Comment [Automate d message] The (test code = system which ge nerated 8349961054) this result tra nsmitted reference range : 27 - 49 mmHg. The refer ence range was not used to interpret this result as normal/abnormal . VENOUS PO2, CORD (test See_Comment [Aut omated message] The code = 4100270599) system [facility] generated this result tra nsmitted reference range : 17 - 41 mmHg. The refer ence range was not used to interpret this result as normal/abnormal . VENOUS BICARBONATE, See_Comment [Automa severiano message] The CORD (test code = system [facility] generated 5057942293) this result tra nsmitted reference range : 12 - 29 mEq/L. The refe rence range was not used to interpret this result as normal/abnormal . [facility] Cord [id number] 04:36:50 Test Item Value Reference Range Interpretation Comments BASE EXCESS, CORD mEq/L (test code = 1975402175) AC PH, CORD (BEAKER) 7.18-7.38 (test code = 0050624431) PC02, CORD (test code See_Comment [Auto mated message] The = ) system which g enerated this result transmit severiano reference range : 32 - 66 mmHg. The refer ence range was not used to interpret this result as normal/abnormal . PO2, CORD (test code See_Comment [Autom ated message] The = 6752868655) system which g enerated this result transmit severiano reference range : 10 - 30 mmHg. The refer ence range was not used to interpret this result as normal/abnormal . BICARBONATE, CORD See_Comment [Automate d message] The (test code = system which ge nerated this 5556595805) result transmit severiano reference range : 17 - 27 mEq/L. The refe rence range was not used to interpret this result as normal/abnormal . [facility] Cord [id number] 04:36:50 Test Item Value Reference Range Interpretation Comments BASE EXCESS, CORD mEq/L (test code = 6378663192) AC PH, CORD (BEAKER) 7.18-7.38 (test code = 2070339732) PC02, CORD (test code See_Comment [Auto mated message] The = 7978471384) system which g enerated this result transmit severiano reference range : 32 - 66 mmHg. The refer ence range was not used to interpret this result as normal/abnormal . PO2, CORD (test code See_Comment [Autom ated message] The = 0573402109) system which g enerated this result transmit severiano reference range : 10 - 30 mmHg. The refer ence range was not used to interpret this result as normal/abnormal . BICARBONATE, CORD See_Comment [Automate d message] The (test code = system which ge nerated this 6019081644) result transmit severiano reference range : 17 - 27 mEq/L. The refe rence range was not used to interpret this result as normal/abnormal . [facility] 1/2 AG-AB WITH [id number] 19:13:24 Test Item Value Reference Range Interpretation Comments HIV Negative Negative Semi-quantitative (test code = 58472-4) JONATAN (test code = Non-reactive for HIV-1 JONATAN) antigen and HIV-1/HIV-2 antibodies. ?No laboratory evidence of HIV infection. ?Repeat in 2-4 weeks if acute HIV infection is suspected. [facility] 1/2 AG-AB WITH [id number] 19:13:24 Test Item Value Reference Range Interpretation Comments HIV Negative Negative Semi-quantitative (test code = 31223-3) JONATAN (test code = Non-reactive for HIV-1 JONATAN) antigen and HIV-1/HIV-2 antibodies. ?No laboratory evidence of HIV infection. ?Repeat in 2-4 weeks if acute HIV infection is suspected. [facility] B Surface [id number] 19:03:43 Test Item Value Reference Range Interpretation Comments HBsAg Semi-Quantitative (test code = Negative Negative 5195-3) [facility] B Surface [id number] 19:03:43 Test Item Value Reference Range Interpretation Comments HBsAg Semi-Quantitative (test code = Negative Negative 5195-3) [facility] and Screen - ONCE [id number] 18:48:26 Test Item Value Reference Range Interpretation Comments ABO & RH (test code O POSITIVE Performe d at [facility] = 20) Laboratory [facility] Blood Bank3 [facility] [address]Qwze Free: [phone] A No. [id number] IAT (test code = Negative Performed a t [facility] 1185) Laboratory [facility] Blood Bank3 [address] [facility] [address]Mrrz Free: [phone] A No. [id number] [facility] Screen - ONCE [id number] 18:48:26 Test Item Value Reference Range Interpretation Comments ABO & RH (test code O POSITIVE Performe d at [facility] = 20) Laboratory [facility] Blood Bank3 [address] [facility] [address]Gupm Free: [phone] A No. [id number] IAT (test code = Negative Performed a t [facility] 1185) Laboratory [facility] Blood [facility] [address] [facility] [address]Qtof Free: [phone] A No. [id number] [facility] with [id number] 18:23:34 Test Item Value Reference Range Interpretation Comments WBC (test code = See_Comment [Automated 6690-2) message] The sy stem which generated this result transmitted reference range : 4.30 - 11.10 10*3/?L. The reference range was not used to interpret this result as normal/abnormal . RBC (test code = See_Comment L [Automated 789-8) message] The sy stem which generated this result transmitted reference range : 3.93 - 5.25 10*6/?L. The reference range was not used to interpret this result as normal/abnormal . HGB (test code = 10.4 g/dL 11.6-15.0 L 718-7) HCT (test code = 32.9 % 35.7-45.2 L 4544-3) MCV (test code = 85.5 fL 80.6-95.5 787-2) MCH (test code = 27.0 pg 25.9-32.8 785-6) MCHC (test code = 31.6 g/dL 31.6-35.1 786-4) RDW-SD (test code = 65.7 fL 39.0-49.9 H 45273-6) RDW-CV (test code = 21.8 % 12.0-15.5 H 788-0) PLT (test code = See_Comment [Automated 777-3) message] The sy stem which generated this result transmitted reference range : 166 - 358 10*3/ ?L. The reference r mynor was not used to interpret this result as normal/abnormal . MPV (test code = 11.2 fL 9.5-12.9 34412-2) NRBC/100 WBC (test See_Comment [Automat ed code = 5164149191) message] The system which generated this result transmitted reference range : 0.0 - 10.0 /100 WBCs. The refer ence range was not u sed to interpret th is result as normal/abnormal . NRBC x10^3 (test code See_Comment [Auto mated = 8463285164) message] The s ystem which generated this result transmitted reference range : 10*3/?L. The reference range was not used to interpret this result as normal/abnormal . GRAN MAT (NEUT) % 68.5 % (test code = 770-8) IMM GRAN % (test code 0.50 % = 6789583839) LYMPH % (test code = 20.4 % 736-9) MONO % (test code = 9.6 % 5905-5) EOS % (test code = 0.6 % 713-8) BASO % (test code = 0.4 % 706-2) GRAN MAT x10^3(ANC) 5.40 10*3/uL 1.88-7.09 (test code = 1829695195) IMM GRAN x10^3 (test 0.04 10*3/uL 0.00-0.06 code = 0592285291) LYMPH x10^3 (test code 1.61 10*3/uL 1.32-3.29 = 731-0) MONO x10^3 (test code 0.76 10*3/uL 0.33-0.92 = 742-7) EOS x10^3 (test code = 0.05 10*3/uL 0.03-0.39 711-2) BASO x10^3 (test code 0.03 10*3/uL 0.01-0.07 = 704-7) Lab Interpretation Abnormal (test code = 31450-0) [facility] with [id number] 18:23:34 Test Item Value Reference Range Interpretation Comments WBC (test code = See_Comment [Automated 6690-2) message] The sy stem which generated this result transmitted reference range : 4.30 - 11.10 10*3/?L. The reference range was not used to interpret this result as normal/abnormal . RBC (test code = See_Comment L [Automated 789-8) message] The sy stem which generated this result transmitted reference range : 3.93 - 5.25 10*6/?L. The reference range was not used to interpret this result as normal/abnormal . HGB (test code = 10.4 g/dL 11.6-15.0 L 718-7) HCT (test code = 32.9 % 35.7-45.2 L 4544-3) MCV (test code = 85.5 fL 80.6-95.5 787-2) MCH (test code = 27.0 pg 25.9-32.8 785-6) MCHC (test code = 31.6 g/dL 31.6-35.1 786-4) RDW-SD (test code = 65.7 fL 39.0-49.9 H 40926-4) RDW-CV (test code = 21.8 % 12.0-15.5 H 788-0) PLT (test code = See_Comment [Automated 777-3) message] The sy stem which generated this result transmitted reference range : 166 - 358 10*3/ ?L. The reference r mynor was not used to interpret this result as normal/abnormal . MPV (test code = 11.2 fL 9.5-12.9 48747-7) NRBC/100 WBC (test See_Comment [Automat ed code = 4661775571) message] The system which generated this result transmitted reference range : 0.0 - 10.0 /100 WBCs. The refer ence range was not u sed to interpret th is result as normal/abnormal . NRBC x10^3 (test code See_Comment [Auto mated = 8982218261) message] The s ystem which generated this result transmitted reference range : 10*3/?L. The reference range was not used to interpret this result as normal/abnormal . GRAN MAT (NEUT) % 68.5 % (test code = 770-8) IMM GRAN % (test code 0.50 % = 4970548713) LYMPH % (test code = 20.4 % 736-9) MONO % (test code = 9.6 % 5905-5) EOS % (test code = 0.6 % 713-8) BASO % (test code = 0.4 % 706-2) GRAN MAT x10^3(ANC) 5.40 10*3/uL 1.88-7.09 (test code = 6664396822) IMM GRAN x10^3 (test 0.04 10*3/uL 0.00-0.06 code = 8173600092) LYMPH x10^3 (test code 1.61 10*3/uL 1.32-3.29 = 731-0) MONO x10^3 (test code 0.76 10*3/uL 0.33-0.92 = 742-7) EOS x10^3 (test code = 0.05 10*3/uL 0.03-0.39 711-2) BASO x10^3 (test code 0.03 10*3/uL 0.01-0.07 = 704-7) Lab Interpretation Abnormal (test code = 85451-8) [facility] URINALYSIS W/O SPECIFIC [id number] 18:25:00 Test Item Value Reference Range Interpretation Comments POCT PH U (test code = 3254) n/a 5-8 POCT U LEUK EST (test code = n/a Negative - Negative 3263) POCT U NIT (test code = 3262) negative Negative - Negative POCT U PROT (test code = 3259) negative Negative - Negative POCT U GLU (test code = 3256) n/a Negative - Negative POCT U KETONE (test code = 3258) n/a Negative - Negative POCT U BLD (test code = 3257) n/a Negative - Negative [facility] [id number] 18:24:00 Test Item Value Reference Range Interpretation Comments POCT PH U (test code = 3254) n/a 5-8 POCT U LEUK EST (test code = n/a Negative - Negative 3263) POCT U NIT (test code = 3262) n/a Negative - Negative POCT U PROT (test code = 3259) negative Negative - Negative POCT U GLU (test code = 3256) negative Negative - Negative POCT U KETONE (test code = 3258) n/a Negative - Negative POCT U BLD (test code = 3257) n/a Negative - Negative [facility] URINALYSIS W/O SPECIFIC [id number] 19:44:00 Test Item Value Reference Range Interpretation Comments POCT PH U (test code = 3254) n/a 5-8 POCT U LEUK EST (test code = n/a Negative - Negative 3263) POCT U NIT (test code = 3262) n/a Negative - Negative POCT U PROT (test code = 3259) negative Negative - Negative POCT U GLU (test code = 3256) negative Negative - Negative POCT U KETONE (test code = 3258) n/a Negative - Negative POCT U BLD (test code = 3257) n/a Negative - Negative [facility] URINALYSIS W/O SPECIFIC [id number] 20:15:00 Test Item Value Reference Range Interpretation Comments POCT PH U (test code = 3254) N/A 5-8 POCT U LEUK EST (test code = N/A Negative - Negative 3263) POCT U NIT (test code = 3262) N/A Negative - Negative POCT U PROT (test code = 3259) Trace Negative - Negative POCT U GLU (test code = 3256) Negative Negative - Negative POCT U KETONE (test code = 3258) N/A Negative - Negative POCT U BLD (test code = 3257) N/A Negative - Negative [facility] [id number] 20:15:00 Test Item Value Reference Range Interpretation Comments POCT PH U (test code = 3254) N/A 5-8 POCT U LEUK EST (test code = N/A Negative - Negative 3263) POCT U NIT (test code = 3262) N/A Negative - Negative POCT U PROT (test code = 3259) Trace Negative - Negative POCT U GLU (test code = 3256) Negative Negative - Negative POCT U KETONE (test code = 3258) N/A Negative - Negative POCT U BLD (test code = 3257) N/A Negative - Negative [facility] W/O SPECIFIC [id number] 19:25:00 Test Item Value Reference Range Interpretation Comments POCT PH U (test code = 3254) 7 mg/dl 5-8 POCT U LEUK EST (test code = Negative Negative - Negative 3263) POCT U NIT (test code = 3262) negative Negative - Negative POCT U PROT (test code = 3259) Negative Negative - Negative POCT U GLU (test code = 3256) Normal Negative - Negative POCT U KETONE (test code = 3258) Negative Negative - Negative POCT U BLD (test code = 3257) negative Negative - Negative [facility] W/O SPECIFIC [id number] 19:01:00 Test Item Value Reference Range Interpretation Comments POCT PH U (test code = 3254) n/a 5-8 POCT U LEUK EST (test code = n/a Negative - Negative 3263) POCT U NIT (test code = 3262) n/a Negative - Negative POCT U PROT (test code = 3259) negative Negative - Negative POCT U GLU (test code = 3256) negative Negative - Negative POCT U KETONE (test code = 3258) n/a Negative - Negative POCT U BLD (test code = 3257) n/a Negative - Negative [facility] W/O SPECIFIC [id number] 21:42:00 Test Item Value Reference Range Interpretation Comments POCT PH U (test code = 3254) n/a 5-8 POCT U LEUK EST (test code = 3263) n/a Negative - Negative POCT U NIT (test code = 3262) n/a Negative - Negative POCT U PROT (test code = 3259) Trace Negative - Negative POCT U GLU (test code = 3256) Normal Negative - Negative POCT U KETONE (test code = 3258) n/a Negative - Negative POCT U BLD (test code = 3257) n/a Negative - Negative [facility] HR GLUCOSE TOLERANCE [id number] 17:55:46 Test Item Value Reference Range Interpretation Comments GLUC 3 HR (test code = 7664187878) 129 mg/dL 70-110 H Lab Interpretation (test code = Abnormal 17215-2) [facility] URINALYSIS W/O SPECIFIC [id number] 21:08:00 Test Item Value Reference Range Interpretation Comments POCT PH U (test code = 3254) n/a 5-8 POCT U LEUK EST (test code = n/a Negative - Negative 3263) POCT U NIT (test code = 3262) n/a Negative - Negative POCT U PROT (test code = 3259) negative Negative - Negative POCT U GLU (test code = 3256) negative Negative - Negative POCT U KETONE (test code = 3258) n/a Negative - Negative POCT U BLD (test code = 3257) n/a Negative - Negative [facility] URINALYSIS W/O SPECIFIC [id number] 21:18:00 Test Item Value Reference Range Interpretation Comments POCT PH U (test code = 3254) n/a 5-8 POCT U LEUK EST (test code = n/a Negative - Negative 3263) POCT U NIT (test code = 3262) n/a Negative - Negative POCT U PROT (test code = 3259) negative Negative - Negative POCT U GLU (test code = 3256) normal Negative - Negative POCT U KETONE (test code = 3258) n/a Negative - Negative POCT U BLD (test code = 3257) n/a Negative - Negative [facility] URINALYSIS W/O SPECIFIC [id number] 16:33:00 Test Item Value Reference Range Interpretation Comments POCT PH U (test code = 3254) n/a 5-8 POCT U LEUK EST (test code = n/a Negative - Negative 3263) POCT U NIT (test code = 3262) n/a Negative - Negative POCT U PROT (test code = 3259) Negative Negative - Negative POCT U GLU (test code = 3256) Nromal Negative - Negative POCT U KETONE (test code = 3258) n/a Negative - Negative POCT U BLD (test code = 3257) n/a Negative - Negative [facility]
[2022-09-25] MEDS ORDERED: MAGNES/ALUMIN/SIMET 30ML UCUP ONE (03:47)
[2022-09-25] MEDS ORDERED: KETOROLAC 30 MG/ML INJ ONE (03:47)
[2022-09-25] MEDS ORDERED: LIDOCAINE VISCOUS 2% SOLN 15 ML UDC ONE (03:58)
[2022-09-25 04:06] LABS: Absolute Lymphocytes (CBC) 3.1 K/uL (0.7-4.9); Hematocrit 31.4 % (36.0-45.0); Lymphocytes % 47.9 % (15.3-44.8); MCV 77.3 fL (80-100); MPV 9.2 fL (7.6-11.3); RBC Red Blood Cell Count 4.07 M/uL (3.86-4.86)
[2022-09-25 04:23] LABS: ALT/SGPT 18 U/L (13-56); AST/SGOT 12 U/L (15-37); Albumin 3.9 g/dL (3.4-5.0); Alkaline Phosphatase 94 U/L (45-117); BUN Blood Urea Nitrogen 9 mg/dL (7-18); Bicarbonate 26 mEq/L (21-32); Bilirubin Total 0.2 mg/dL (0.2-1.0); Glomerular Filtration Rate 126 ml/min (=/>90); Glucose Level 96 mg/dL (74-106); Lipase 34 U/L (13-75); Sodium Level 138 mEq/L (136-145)
[2022-09-25 04:24] LABS: Troponin High Sensitivity < 3.0 pg/mL (<58.9)
--- NOTE | 2022-09-25 04:30 | ER ---
Nurse's Notes [facility] Name: Klaudia Combs Age: 21 yrs Sex: Female : 2000 Arrival Date: 09/25/2022 Time: 03:02 Bed 6 Private MD: Diagnosis: Chest pain, unspecified;Hypokalemia Presentation: 09/25 03:16 Chief complaint: Patient states: "I've had chest pain for the past couple of days I've vc1 been taking Tylenol for it. Tonight around 9 oclock it came back and the Tylenol isn't helping.". Coronavirus screen: Vaccine status: Patient reports being unvaccinated. Client denies travel out of the [place] in the last 14 days. At this time, the client does not indicate any symptoms associated with coronavirus-19. Ebola Screen: Patient negative for fever greater than or equal to 101.5 degrees Fahrenheit, and additional compatible Ebola Virus Disease symptoms Patient denies exposure to infectious person. Patient denies travel to an Ebola-affected area in the 21 days before illness onset. No symptoms or risks identified at this time. Initial Sepsis Screen: Does the patient meet any 2 criteria? No. Patient's initial sepsis screen is negative. Does the patient have a suspected source of infection? No. Patient's initial sepsis screen is negative. Risk Assessment: Do you want to hurt yourself or someone else? Patient reports no desire to harm self or others. Onset of symptoms was September 21, 2022. 03:16 Method Of Arrival: Ambulatory vc1 03:16 Acuity: RONDA 4 vc1 Triage Assessment: 03:19 General: Appears in no apparent distress. uncomfortable, Behavior is calm, cooperative, vc1 appropriate for age. Pain: Complains of pain in diaphragm Pain radiates to left scapular area, right scapular area, thoracic area and mid back area Pain currently is 5 out of 10 on a pain scale. Quality of pain is described as heavy. EENT: No deficits noted. No signs and/or symptoms were reported regarding the EENT system. Neuro: Level of Consciousness is awake, alert, obeys commands, Oriented to person, place, time, situation, Appropriate for age. Cardiovascular: Reports chest pain, since couple of days Capillary refill < 3 seconds Patient's skin is warm and dry. Chest pain is described as mild, quality is heaviness, radiates to bilateral back scapula. Respiratory: Airway is patent Respiratory effort is even, unlabored, Respiratory pattern is regular, symmetrical. Respiratory: Denies cough. GI: No deficits noted. No signs and/or symptoms were reported involving the gastrointestinal system. : No deficits noted. No signs and/or symptoms were reported regarding the genitourinary system. Derm: No deficits noted. No signs and/or symptoms reported regarding the dermatologic system. Musculoskeletal: No deficits noted. No signs and/or symptoms reported regarding the musculoskeletal system. 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 - Social history:: Smoking status: Patient denies any tobacco usage or history of. - Family history:: not pertinent. Screenin:22 [facility] ED Fall Risk Assessment (Adult) History of falling in the last 3 months, vc1 including since admission No falls in past 3 months (0 pts) Confusion or Disorientation No (0 pts) Intoxicated or Sedated No (0 pts) Impaired Gait No (0 pts) Mobility Assist Device Used No (0 pt) Altered Elimination No (0 pt) Score/Fall Risk Level 0 - 2 = Low Risk Oriented to surroundings, Maintained a safe environment, Educated pt \\T\\ family on fall prevention, incl call for assistance when getting out of bed. Abuse screen: Denies threats or abuse. Nutritional screening: No deficits noted. Tuberculosis screening: No symptoms or risk factors identified. Assessment: 03:25 General: Appears in no apparent distress. comfortable, well groomed, well developed, pf1 Behavior is calm, cooperative, appropriate for age, quiet. 03:25 Pain: Complains of pain in chest Pain currently is 5 out of 10 on a pain scale. Neuro: pf1 No deficits noted. Level of Consciousness is awake, alert, obeys commands, Oriented to person, place, time, situation. Cardiovascular: No deficits noted. Capillary refill < 3 seconds Patient's skin is warm and dry. Respiratory: No deficits noted. Airway is patent Trachea midline Respiratory effort is even, unlabored, Respiratory pattern is regular, symmetrical, Breath sounds are clear bilaterally. GI: No deficits noted. No signs and/or symptoms were reported involving the gastrointestinal system. : No deficits noted. No signs and/or symptoms were reported regarding the genitourinary system. EENT: No deficits noted. No signs and/or symptoms were reported regarding the EENT system. 04:37 Reassessment: Patient appears in no apparent distress at this time. Patient and/or aa9 family updated on plan of care and expected duration. Pain level reassessed. Patient is alert, oriented x 3, equal unlabored respirations, skin warm/dry/pink. Patient states feeling better. Vital Signs: 03:16 BP 131 / 93; Pulse 91; Resp 16; Pulse Ox 100% on R/A; as7 03:16 BP 133 / 93; Pulse 76; Resp 15; Temp 98.4; Pulse Ox 100% ; Weight 64.41 kg; Height 5 vc1 ft. 3 in. ; Pain 5/10; 04:02 BP 124 / 95; Pulse 82; Resp 16; Pulse Ox 99% on R/A; pf1 04:37 BP 123 / 85; Pulse 80; Resp 16; Temp 98.5(O); Pulse Ox 99% on R/A; aa9 03:16 Body Mass Index 25.15 (64.41 kg, 160.02 cm) vc1 03:16 Pain Scale: Adult vc1 ED Course: 03:06 Patient arrived in ED. [id number] 03:10 Kemal Patel MD is Attending Physician. rt 03:18 Triage completed. vc1 03:20 Patient has correct armband on for positive identification. Bed in low position. Call pf1 light in reach. 03:20 Client placed on continuous cardiac and pulse oximetry monitoring. NIBP monitoring aa9 applied. 03:21 Arm band placed on left wrist. vc1 03:35 Chest Single View XRAY In Process Unspecified. EDMS 03:35 No provider procedures requiring assistance completed. Inserted saline lock: 22 gauge pf1 in right antecubital area, using aseptic technique. Blood collected. 03:44 Lipase Sent. pf1 03:44 CMP Sent. pf1 03:44 CBC with Diff Sent. pf1 03:44 Test, Serum Sent. pf1 03:44 Troponin High Sensitivity Sent. pf1 04:02 Joie Antoine, RN is Primary Nurse. pf1 04:37 IV discontinued, intact, bleeding controlled, No redness/swelling at site. Pressure aa9 dressing applied. Patient maintains SpO2 saturation greater than 95% on room air. Administered Medications: 03:46 Drug: Ketorolac IVP 15 mg Route: IVP; Site: right antecubital; aa9 04:36 Follow up: Response: No adverse reaction aa9 04:00 Drug: GI Cocktail without - (Maalox PO Suspension 30 ml, Lidocaine Mucous pf1 Membrane Liquid 2 % 15 ml) Route: PO; 04:36 Follow up: Response: No adverse reaction aa9 04:36 Drug: Potassium Chloride PO 40 mEq Route: PO; aa9 04:36 Follow up: Response: No adverse reaction aa9 Medication: 03:22 VIS not applicable for this client. vc1 Outcome: 04:29 Discharge ordered by . rt 04:36 Discharged to home ambulatory. aa9 04:36 Condition: stable 04:36 Discharge instructions given to patient, Instructed on discharge instructions, follow up and referral plans. Demonstrated understanding of instructions, follow-up care. 04:38 Patient left the ED. aa9 Signatures: Dispatcher [employer] EDMS Dianelys Hemphill [id number] Rebekah Jeffers RN RN 1 Jes Dye RN RN aa9 Kemal Patel MD MD rt Joie Antoine RN RN pf1 Citlali, Zee as7
--- NOTE | 2022-09-25 04:30 | EDPHYS ---
Physician Documentation [facility] Name: Klaudia Combs Age: 21 yrs Sex: Female : 2000 Arrival Date: 09/25/2022 Time: 03:02 Bed 6 Private MD: ED Physician Kemal Patel HPI: 09/25 03:57 This 21 yrs old Female presents to ER via Ambulatory with complaints of Chest rt Pain. 03:57 Patient presents to the ED with about 2 days of intermittent chest pain. It is worse rt with eating, worse with lying down. It is localized to the anterior chest. Denies any difficulty breathing, nausea, other acute complaints. Symptoms are mild in severity, aching nature, not radiating, no other aggravating alleviating factors.. 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 - Social history:: Smoking status: Patient denies any tobacco usage or history of. - Family history:: not pertinent. ROS: 03:57 Constitutional: Negative for fever, chills, and weight loss, Respiratory: Negative for rt shortness of breath, cough, wheezing, and pleuritic chest pain, Abdomen/GI: Negative for abdominal pain, nausea, vomiting, diarrhea, and constipation, MS/Extremity: Negative for injury and deformity, Skin: Negative for injury, rash, and discoloration, Neuro: Negative for headache, weakness, numbness, tingling, and seizure, Psych: Negative for depression, anxiety, suicide ideation, homicidal ideation, and hallucinations. 03:57 Cardiovascular: Positive for chest pain, Negative for edema. Exam: 03:57 Constitutional: This is a well developed, well nourished patient who is awake, alert, rt and in no acute distress. Head/Face: Normocephalic, atraumatic. Chest/axilla: Normal chest wall appearance and motion. Nontender with no deformity. No lesions are appreciated. Cardiovascular: Regular rate and rhythm with a normal S1 and S2. No gallops, murmurs, or rubs. Normal PMI, no JVD. No pulse deficits. Respiratory: Lungs have equal breath sounds bilaterally, clear to auscultation and percussion. No rales, rhonchi or wheezes noted. No increased work of breathing, no retractions or nasal flaring. Abdomen/GI: Soft, non-tender, with normal bowel sounds. No distension or tympany. No guarding or rebound. No evidence of tenderness throughout. Skin: Warm, dry with normal turgor. Normal color with no rashes, no lesions, and no evidence of cellulitis. MS/ Extremity: Pulses equal, no cyanosis. Neurovascular intact. Full, normal range of motion. Neuro: Awake and alert, GCS 15, oriented to person, place, time, and situation. Cranial nerves II-XII grossly intact. Motor strength 5/5 in all extremities. Sensory grossly intact. Cerebellar exam normal. Normal gait. 03:57 ECG was reviewed by the Attending Physician. Vital Signs: 03:16 BP 131 / 93; Pulse 91; Resp 16; Pulse Ox 100% on R/A; as7 03:16 BP 133 / 93; Pulse 76; Resp 15; Temp 98.4; Pulse Ox 100% ; Weight 64.41 kg; Height 5 vc1 ft. 3 in. ; Pain 5/10; 04:02 BP 124 / 95; Pulse 82; Resp 16; Pulse Ox 99% on R/A; pf1 04:37 BP 123 / 85; Pulse 80; Resp 16; Temp 98.5(O); Pulse Ox 99% on R/A; aa9 03:16 Body Mass Index 25.15 (64.41 kg, 160.02 cm) vc1 03:16 Pain Scale: Adult vc1 MDM: 03:15 Patient medically screened. rt 04:30 Differential diagnosis: acute myocardial infarction, pancreatitis, pleurisy, pneumonia, rt pneumothorax, pulmonary embolus. HEART Score: History: Slightly Suspicious (0), ECG: Normal (0), Age: < or = 45 years (0), Risk Factors: No Risk Factors Known (0), Troponin: < or = 1 x Normal Limit (0), Total Score = 0. Data reviewed: vital signs, nurses notes, lab test result(s), EKG, radiologic studies. I considered the following discharge prescriptions or medication management in the emergency department Medications were administered in the Emergency Department. See MAR. Independent interpretation of the following test(s) in the Emergency Department X-Ray: My interpretation is No consolidation seen on my interpretation of the chest x-ray images. Test considered but Not performed: CT: Patient is low risk for DVT PE, is PE RC negative, does not require CT angiogram to rule out pulmonary embolism. Response to treatment: the patient's symptoms have resolved after treatment. 09/25 03:21 Order name: Troponin High Sensitivity; Complete Time: 04:26 rt 09/25 03:21 Order name: Test, Serum; Complete Time: 04:24 rt 09/25 03:21 Order name: CBC with Diff; Complete Time: 04:24 rt 09/25 03:21 Order name: CMP; Complete Time: 04: rt 09/25 03:21 Order name: Lipase; Complete Time: 04: rt 09/25 03:21 Order name: Chest Single View XRAY rt 09/25 03:21 Order name: EKG; Complete Time: 03:21 rt 09/25 03:21 Order name: EKG - Nurse/Tech; Complete Time: 03:44 rt EC:57 Rate is 73 beats/min. Rhythm is regular, Normal Sinus Rhythm with No ectopy. QRS [place] rt is Normal. [place] interval is normal. QRS interval is normal. QT interval is normal. No Q waves. T waves are Normal. No ST changes noted. Interpreted by me. Administered Medications: 03:46 Drug: Ketorolac IVP 15 mg Route: IVP; Site: right antecubital; aa9 04:36 Follow up: Response: No adverse reaction aa9 04:00 Drug: GI Cocktail without - (Maalox PO Suspension 30 ml, Lidocaine Mucous pf1 Membrane Liquid 2 % 15 ml) Route: PO; 04:36 Follow up: Response: No adverse reaction aa9 04:36 Drug: Potassium Chloride PO 40 mEq Route: PO; aa9 04:36 Follow up: Response: No adverse reaction aa9 Disposition Summary: 09/25/22 04:29 Discharge Ordered Location: Home rt Problem: new rt Symptoms: are resolved rt Condition: Stable rt Diagnosis - Chest pain, unspecified rt - Hypokalemia rt Followup: rt - With: Private Physician - When: 2 - 3 days - Reason: Discharge Instructions: - Discharge Summary Sheet rt - Nonspecific Chest Pain, Adult rt - Potassium Content of Foods rt - Hypokalemia rt Forms: - Medication Reconciliation Form rt - Thank You Letter rt - Antibiotic Education rt - Prescription Opioid Use rt Signatures: Dispatcher [employer] Rebekah Yanez RN RN vc1 Jes Dye RN RN aa9 Kemal Patel MD MD rt Joie Antoine RN RN pf1
[2022-09-25] MEDS ORDERED: POTASSIUM CL SA 10 MEQ TAB PO ONE (04:40)
[2022-09-25 04:54] VITALS: O2SAT 99
[2022-09-25 05:00] VITALS: BP 123/85; TEMP 98.5
--- NOTE | 2022-09-25 08:18 | EKG ---
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
--- NOTE | 2022-09-25 11:06 | RAD REPORT ---
EXAM DESCRIPTION: RAD - Chest Single View - 09/25/2022 3:33 am CLINICAL HISTORY: The patient is 21 years old and is Female; CHEST PAIN TECHNIQUE: Frontal view of the chest. COMPARISON: No relevant prior studies available. FINDINGS: Lungs: Unremarkable. No consolidation. Pleural space: Unremarkable. No pneumothorax. Heart: Unremarkable. Mediastinum: Unremarkable. Bones/joints: Unremarkable. IMPRESSION: No acute findings in the chest. Electronically signed by: Ad Mcgowan MD 09/25/2022 4:13 AM CDT Due to temporary technical issues with the PACS/Fluency reporting system, reports are being signed by the in house radiologist without review as a courtesy to ensure prompt reporting. The interpreting r adiologist is fully responsible for the content of the report.
== END 2022-09-25 04:38 | disposition home or self-care (01) ==
LOC: ER 03:02
DX: R07.89 Other chest pain (principal); E87.6 Hypokalemia
CPT/HCPCS: 36415; 71045; 80053; 83690; 84484; 84703; 85025; 93005; 96374; 99285